=== PATIENT | male | born 1950 | race Caucasian/White ===

== ENCOUNTER 2022-04-21 22:41 | Emergency (ER) | payer MEDICARE, BC, SELFPAY ==
[2022-04-21 23:24] VITALS: BP 150/96; PULSE 99; RESP 16; TEMP 36.9; O2SAT 99; BMI 22.3
--- NOTE | 2022-04-22 00:12 | ED_ITS ---
HPI - Anxiety General Date Seen: 04/22/22 Chief Complaint: Anxiety Stated Complaint: Anxiety Time Seen by Provider: 04/22/22 00:12 Source: patient Mode of arrival: ambulatory History of Present Illness HPI narrative: Patient is a 72-year-old gentleman who presents here with self diagnosed anxiety, he is taking his blood pressures tonight, is getting readings in the 135 systolic and a 150 range. This very caused him a lot of anxiety, he did not have any chest pain any shortness of breath associated with this. He is not having any other symptoms. He has had anxiety in the past and was given 3 tablets of medication here, and says he wonders if he may get those again. He was given Ativan for this. He is not drinking any alcohol, he has no past history of any heart related issues but he is on a statin along with the Protonix. complaint: anxiety Onset (ago): hour(s) Severity: mild Quality: constant Place: home History of similar episodes: Yes Provoking factors: none known Relieving factors: nothing Exacerbating factors: nothing Associated symptoms: denies other symptoms Related Data Home Medications Medication Instructions Recorded Confirmed pantoprazole 40 mg tablet,delayed 40 mg PO DAILY 04/21/22 04/21/22 release simvastatin 40 mg tablet 40 mg PO DAILY 04/21/22 04/21/22 Previous Rx's Medication Instructions Recorded hydroxyzine pamoate 25 mg capsule 25 mg PO TID PRN #20 caps 04/22/22 Allergies Allergy/AdvReac Type Severity Reaction Status Date / Time No Known Drug Allergies Allergy Verified 04/21/22 23:31 Review of Systems Status of ROS: Reports: 10 or more systems reviewed and unremarkable except as noted in History and below PFSH PFS Social History Smoking Status: Never smoker How often do you have a drink containing alcohol: never AUDIT-C Alcohol total score: 0 Non-prescribed substance use: denies use Exam Narrative: Exam Narrative: Patient is very nice gentleman seen in room 5, he tells me right off that he is not suicidal or homicidal. His pupils are equal round react to light there is no scleral icterus redness TMs are normal oropharynx normal there is no adenopathy anterior posterior chains his neck is supple full range of motion, chest is clear heart sounds are normal, abdomen is soft there is no guarding no past splenomegaly, he does appear anxious, with the speech, but it is not pressured. Skin reveals no petechiae or rashes and he is neurologically intact in his upper lower extremities. Const: Vital Signs, click to edit/add: Vital Signs - 24 hr 04/21/22 23:24 Temperature 98.4 F Pulse Rate [Left P ulse Oximeter] 99 Respiratory Rate 16 Blood Pressure [Ri ght Upper Arm] 150/96 H Pulse Oximetry 99 Oxygen Delivery Me thod Room Air Course Vital Signs Vital signs: Initial Vital Signs Temperature 98.4 F 04/21/22 23:24 Temperature Source Temporal Artery Scan 04/21/22 23:24 Pulse Rate 99 04/21/22 23:24 Respiratory Rate 16 04/21/22 23:24 Blood Pressure 150/96 H 04/21/22 23:24 Blood Pressure Mean 114 04/21/22 23:24 Blood Pressure Position Sitting 04/21/22 23:24 Pulse Oximetry 99 04/21/22 23:24 Oxygen Delivery Method 04/21/22 23:24 Vital Signs Temperature 98.4 F 04/21/22 23:24 Pulse Rate 99 04/21/22 23:24 Respiratory Rate 16 04/21/22 23:24 Blood Pressure 150/96 H 04/21/22 23:24 Pulse Oximetry 99 04/21/22 23:24 Oxygen Delivery Method 04/21/22 23:24 Temperature 98.4 F 04/21/22 23:24 Pulse Rate 99 04/21/22 23:24 Respiratory Rate 16 04/21/22 23:24 Blood Pressure 150/96 H 04/21/22 23:24 Pulse Oximetry 99 04/21/22 23:24 Oxygen Delivery Method 04/21/22 23:24 MDM - Anxiety MDM Narrative Medical decision making narrative: Patient is seen and assessed, differential diagnosis is anxiety, no history of substance abuse, no history of cardiac issues. I discussed with him that I think if we use a little bit hydroxyzine, and then along to go home, with a small prescription that would be appropriate. He will follow up with his regular physician for a better treatment of the anxiety. Medical Records Attestation: I reviewed the patient's medical records. Discharge Plan Discharge Clinical Impression: Acute anxiety Patient Disposition: Home, Self-Care Condition: Stable Instructions: Anxiety (ED) Additional Instructions: Home, rest, use of medications as directed, follow-up with primary care. Prescriptions: New hydroxyzine pamoate 25 mg capsule 25 mg PO TID PRNQty: 20 0RF No Action simvastatin 40 mg tablet 40 mg PO DAILY pantoprazole 40 mg tablet,delayed release (DR/EC) 40 mg PO DAILY Follow Up/Referrals: Dimitri Zimmer MD [Primary Care Provider] - Stand Alone Forms: [employer] Info Instructions
[2022-04-22] MEDS: hydrOXYzine pamoate 25 MG CAPSULE PO (00:13)
== END 2022-04-22 00:35 | disposition home or self-care (01) ==
PROVIDERS: Emergency Provider Family Medicine; PCP Orthopaedic Surgery
DX: F41.9 Anxiety disorder, unspecified (principal)
CPT/HCPCS: 99283; A9270

== ENCOUNTER 2023-05-23 22:02 | Emergency (ER) | payer MEDICARE, BC, SELFPAY ==
[2023-05-23 22:14] VITALS: BP 146/86; PULSE 81; RESP 18; TEMP 36.6; O2SAT 98; BMI 23.0
--- NOTE | 2023-05-23 23:24 | ED_ITS ---
HPI - Extremity Injury (Upper) General Time Seen by Provider: 23:24 Date Seen: 05/23/23 Chief Complaint: Extremity Pain/Injury, Upper Stated Complaint: smashed finger on door Time Seen by Provider: 05/23/23 23:24 Source: patient and RN notes reviewed Mode of arrival: ambulatory Limitations: no limitations History of Present Illness HPI narrative: This andie 73-year-old gentleman is coming in with a right 5th finger injury. 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 Sustained a laceration, could not get it to stop bleeding. He is not on any blood thinners. 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 States he wasn't having issues bending it, could feel the end of the finger, did not note any numbness or tingling. Tetanus is up to date on 12/17/2022. Nothing else was injured. He soaked his finger in Epson salt water at home to clean it. MD complaint: injury to: right and finger Related Data Home Medications Medication Instructions Recorded Confirmed pantoprazole 40 mg tablet,delayed 40 mg PO DAILY 04/21/22 04/21/22 release simvastatin 40 mg tablet 40 mg PO DAILY 04/21/22 04/21/22 Previous Rx's Medication Instructions Recorded hydroxyzine pamoate 25 mg capsule 25 mg PO TID PRN #20 caps 04/22/22 Allergies Allergy/AdvReac Type Severity Reaction Status Date / Time No Known Drug Allergies Allergy Verified 04/21/22 23:31 Review of Systems Narrative: As per HPI. PFSH PFS Social History Smoking Status: Never smoker How often do you have a drink containing alcohol: never AUDIT-C Alcohol total score: 0 Non-prescribed substance use: denies use Exam Const: Vital Signs, click to edit/add: Vital Signs - 24 hr 05/23/23 22:14 Temperature 97.9 F Pulse Rate [Pulse Oximeter] 81 Respiratory Rate 18 Blood Pressure [Ri ght Upper Arm] 146/86 H Pulse Oximetry 98 Oxygen Delivery Me thod Room Air Very pleasant 73yo male seen in exam room 6. He has his hand in a glove and when this is removed, can see that he has bandages over the end of his right 5th finger, has bled through the bandages. These were removed and reveals a stellate center portion of the laceration that extends linearly both medially and laterally along the distal DIP grove of the palmar surface of the finger. Seems to have intact distal sensation of the pad of this finger. Mild oozing of blood. Documenting provider has reviewed patient's vital signs: yes Course Course ED Course: Finger anesthetized with 0.25% bupivacaine. This was done locally. Patient tolerated the procedure well. Standard sterile technique was observed, laceration was closed with simple interrupted sutures, a total of 8. There was a portion in the center of the stellate area where there was actually a little loss of the superficial skin. There is no active bleeding and thus this was just left. The rest of the skin had good closure and hemostasis was observed. Patient tolerated the procedure well. Patient will be getting an x-ray of this finger to rule out underlying fracture. Vital Signs Vital signs: Initial Vital Signs Temperature 97.9 F 05/23/23 22:14 Temperature Source Temporal Artery Scan 05/23/23 22:14 Pulse Rate 81 05/23/23 22:14 Respiratory Rate 18 05/23/23 22:14 Blood Pressure 146/86 H 05/23/23 22:14 Blood Pressure Mean 106 H 05/23/23 22:14 Pulse Oximetry 98 05/23/23 22:14 Oxygen Delivery Method Room Air 05/23/23 22:14 Vital Signs Temperature 97.9 F 05/23/23 22:14 Pulse Rate 81 05/23/23 22:14 Respiratory Rate 18 05/23/23 22:14 Blood Pressure 146/86 H 05/23/23 22:14 Pulse Oximetry 98 05/23/23 22:14 Oxygen Delivery Method Room Air 05/23/23 22:14 Temperature 97.9 F 05/23/23 22:14 Pulse Rate 81 05/23/23 22:14 Respiratory Rate 18 05/23/23 22:14 Blood Pressure 146/86 H 05/23/23 22:14 Pulse Oximetry 98 05/23/23 22:14 Oxygen Delivery Method Room Air 05/23/23 22:14 MDM - Extremity Injury (Upper) Imaging Data XR finger: Attestation: I have reviewed the pertinent imaging results. Radiologist's impression: Patient: KEERTHI HANSON Facility:?[facility] Patient ID:?[id number] Site Patient ID:?[id number]. Site :?[id number] Study:?XRay Extremity Right 5th Finger 3 views-05/24/2023 12:08:06 AM Ordering Physician:Ashley Montez Final Report: INDICATION: Right 5th finger trauma. TECHNIQUE: Right hand, 5th digit radiographs, 3 views. COMPARISON: None. FINDINGS: No acute fractures or dislocation. The joint spaces are preserved. Mild diffuse soft tissue edema involving the right 5th digit. No radiopaque foreign bodies. IMPRESSION: No acute fractures or dislocation. Mild soft tissue edema of the right 5th finger diffusely. Dictated by Adis Jones MD @ 05/24/2023 12:23:54 AM (Electronic Signature) Critical Care Time Critical Care Time Critical Care Time: No Discharge Plan Discharge Clinical Impression: Finger laceration Patient Disposition: Home, Self-Care Condition: Stable Instructions: Finger Laceration (ED) Additional Instructions: Need to keep this finger clean and dry until it is healed. Need to schedule a clinic appointment in about 10 days to assess the wound for suture removal. Apply bacitracin 3 to 4 times a day to wound, keep covered to keep it clean, especially if working. Do recommend using the splint to try to keep it straight if working as this will help diminish stress on the healing laceration. If there is any concern for infection, please seek re-evaluation. Prescriptions: No Action simvastatin 40 mg tablet 40 mg PO DAILY pantoprazole 40 mg tablet,delayed release (DR/EC) 40 mg PO DAILY hydroxyzine pamoate 25 mg capsule 25 mg PO TID PRNQty: 20 0RF Follow Up/Referrals: Dimitri Zimmer MD [Primary Care Provider] - Stand Alone Forms: [employer] Info Instructions
--- NOTE | 2023-05-23 23:47 | CRLHL7_ITS ---
For Patients: As a result of the Cures Act, medical imaging exams and procedure reports are released immediately into your electronic medical record. You may view this report before your referring provider. If you have questions, please contact your health care provider. INDICATION: Right 5th finger trauma. TECHNIQUE: Right hand, 5th digit radiographs, 3 views. COMPARISON: None. FINDINGS: No acute fractures or dislocation. The joint spaces are preserved. Mild diffuse soft tissue edema involving the right 5th digit. No radiopaque foreign bodies. IMPRESSION: No acute fractures or dislocation. Mild soft tissue edema of the right 5th finger diffusely. Dictated by Adis Jones MD @ 05/24/2023 12:23:54 AM (Electronically Signed)
== END 2023-05-24 00:45 | disposition home or self-care (01) ==
PROVIDERS: Emergency Provider Family Medicine; PCP Orthopaedic Surgery
DX: S61.216A Laceration without foreign body of right little finger without damage to nail, initial encounter (principal); W23.0XXA Caught, crushed, jammed, or pinched between moving objects, initial encounter; Y92.79 Other farm location as the place of occurrence of the external cause
CPT/HCPCS: 12001; 73140; 99283

== ENCOUNTER 2024-07-01 23:14 | Emergency (ER) | payer MEDICARE, BC, SELFPAY ==
[2024-07-01 23:23] VITALS: BP 188/108; PULSE 89; RESP 16; TEMP 36.5; O2SAT 100; BMI 23.7
--- NOTE | 2024-07-01 23:25 | ED.GENADULT ---
HPI - General Adult General Time Seen by Provider: 23:25 <Melida Warren MD - Last Filed: 07/05/24 19:50> Date Seen: 07/01/24 <Melida Warren MD - Last Filed: 07/05/24 19:50> Chief complaint: Lower Extremity Swelling <Melida Warren MD - Last Filed: 07/05/24 19:50> Stated complaint: R leg swelling and pain <Melida Warren MD - Last Filed: 07/05/24 19:50> Time Seen by Provider: 07/01/24 23:25 <Melida Warren MD - Last Filed: 07/05/24 19:50> Source: patient and RN notes reviewed <Melida Warren MD - Last Filed: 07/05/24 19:50> Mode of arrival: ambulatory <Melida Warren MD - Last Filed: 07/05/24 19:50> Limitations: no limitations <Melida Warren MD - Last Filed: 07/05/24 19:50> History of Present Illness HPI narrative: Ronan is a 74-year-old male coming in with right lower extremity swelling that is worsening. He notes there is discomfort along the mid anterior arnold of this right leg, symptoms have been worse over the last few days. For about 5-6 years he would note that if he was sitting in his tractor too long in a certain position that the dorsum of his right foot would be swollen. This would go down with movement. He has seen his primary care provider about it. His enologist Dr. Childs did shave the callus between his 4th and 5th toes on the right foot recently, he wondered if there could be an infection. He has had no fevers or chills. There is a little pain anteriorly along this mid tibial area that does hurt with walking. He has no pain in the calf. He states his ankle and his leg is typically not swollen. He denies any shortness of breath, no chest pain, no abdominal pain or bloating. He does not drink alcohol, no illicit drug use. He has had no travel or prolonged immobilization. 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 Medications are reviewed, history of anxiety and hyperlipidemia. He notes his left knee is bad with arthritis. He has never had any surgery on his right lower extremity. <Melida Warren MD - Last Filed: 07/05/24 19:50> Related Data Home medications: Home Medications ?Medication ?Instructions ?Recorded ?Confirmed pantoprazole 40 mg tablet,delayed 40 mg PO DAILY 04/21/22 04/21/22 release simvastatin 40 mg tablet 40 mg PO DAILY 04/21/22 07/01/24 Previous Rx's ?Medication ?Instructions ?Recorded hydroxyzine pamoate 25 mg capsule 25 mg PO TID PRN #20 caps 04/22/22 <Melida Warren MD - Last Filed: 07/05/24 19:50> Allergies/adverse reactions: Allergies Allergy/AdvReac Type Severity Reaction Status Date / Time No Known Drug Allergies Allergy Verified 07/01/24 23:26 <Melida Warren MD - Last Filed: 07/05/24 19:50> Review of Systems Status of ROS: Reports: 6 or more systems reviewed and unremarkable except as noted in History and below <Melida Warren MD - Last Filed: 07/05/24 19:50> [facility] Social History: Social History Smoking Status: Never smoker Do you use any of these nicotine containing products: None Second hand tobacco smoke exposure: No How often do you have a drink containing alcohol: never How often do you have six or more drinks on one occasion: Never AUDIT-C Alcohol total score: 0 Non-prescribed substance use: denies use service: No <Melida Warren MD - Last Filed: 07/05/24 19:50> Exam Const: Vital Signs, click to edit/add: Vital Signs - 24 hr 07/01/24 23:23 07/02/24 00:23 Temperature 97.7 F Pulse Rate [Pulse Oximeter] 89 81 Respiratory Rate 16 16 Blood Pressure [Ri ght Upper Arm] 188/108 H 164/91 H Pulse Oximetry 100 99 Oxygen Delivery Me thod Room Air Room Air Ronan is alert, interactive, no apparent distress very verbose and conversational, very pleasant. Sclera clear, face atraumatic. No tachypnea. CV regular with ectopy at times no murmur noted, normal S1-S2. Lungs are clear, good air entry, no wheezing or crackles. Abdomen is soft, nontender, nondistended, no organomegaly. His right lower extremity certainly appears larger than the left. His ankle is larger on the right than the left. Do not note significant swelling with in the right foot verses the left foot. Dorsalis pedis and posterior tibialis pulses are faint but symmetric. His feet feel warm, no erythema or ecchymosis noted. Toenails are long on both feet. Does seem to have slight swelling on the dorsum of the right foot compared to the left. Measuring 10 cm down from his tibial tuberosity on both legs, right leg measures 39 cm and left 37 cm. He has about 1 to 2+ pretibial edema on the right, negligible on the left. Edema does not seem to extend above the knee. I note no varicose veins, do not appreciate any superficial veins. The area between his 4th and 5th toes where he had debridement of the callus is completely benign, looks to be normal skin, no evidence of prior debridement or residual callus at this time. <Melida Warren MD - Last Filed: 07/05/24 19:50> Vital Signs, click to edit/add: Vital Signs - 24 hr 07/01/24 23:23 07/02/24 00:23 Temperature 97.7 F Pulse Rate [Pulse Oximeter] 89 81 Respiratory Rate 16 16 Blood Pressure [Ri ght Upper Arm] 188/108 H 164/91 H Pulse Oximetry 100 99 Oxygen Delivery Me thod Room Air Room Air <William Steward MD - Last Filed: 07/06/24 11:03> Documenting provider has reviewed patient's vital signs: yes <Melida Warren MD - Last Filed: 07/05/24 19:50> Course Course ED Course: This 74-year-old male is presenting with some discomfort but it is along his anterior lower extremity but has isolated right lower extremity swelling. Will check portable chest x-ray, obtain EKG is he does have some ectopy or irregularity at times listening to his heart, insure no arrhythmia. Will check D-dimer, CBC and comprehensive metabolic panel. He is providing some history that would suggest edema in this leg even if it was only affecting the dorsum of his right foot with dependent positional nature over the last 5-6 years. We did discuss that patient's edema can progress and it can be unilateral. I am doubtful that he has congestive heart failure based on presentation but will double-check with a chest x-ray, will look at a proBNP. He has no respiratory or cardiac symptoms that would suggest this. I think likely diagnosis of venous insufficiency could be probable, have reviewed with him that venous ultrasound could be done outpatient if negative workup here, this is not something that is an emergent test. This type of swelling can be chronic and recurrent but can be managed through his primary provider. Consideration for DVT, will look at wells criteria as well as D-dimer. This does not appear to be infectious in nature at all. Have reviewed well's criteria and he definitely has unilateral pitting edema, giving him a score of 1, he may be a score of 2 with full leg edema but certainly is a 1. R D-dimer here is not highly sensitive, is a regular D-dimer. Thus, he will need to proceed to ultrasound of this lower extremity to definitively rule out DVT. <Melida Warren MD - Last Filed: 07/05/24 19:50> Reevaluation(s) Time of Reevaluation #1: 00:16 <Melida Warren MD - Last Filed: 07/05/24 19:50> Reevaluation #1: Reviewed with patient that his chest x-ray and EKG are reassuring, no concerning findings. His CBC is normal. Did review with him that he will be getting a venous ultrasound of his right lower extremity to rule out DVT. If this is negative, will discharge to home to follow up with his primary care provider to pursue further evaluation of right lower extremity edema, consider venous insufficiency. <Melida Warren MD - Last Filed: 07/05/24 19:50> Vital Signs Vital signs: Initial Vital Signs Temperature 97.7 F 07/01/24 23:23 Temperature Source Temporal Artery Scan 07/01/24 23:23 Pulse Rate 89 07/01/24 23:23 Respiratory Rate 16 07/01/24 23:23 Blood Pressure 188/108 H 07/01/24 23:23 Blood Pressure Mean 134 H 07/01/24 23:23 Blood Pressure Position Sitting 07/01/24 23:23 Pulse Oximetry 100 07/01/24 23:23 Oxygen Delivery Method Room Air 07/01/24 23:23 Vital Signs Temperature 97.7 F 07/01/24 23:23 Pulse Rate 89 07/01/24 23:23 Respiratory Rate 16 07/01/24 23:23 Blood Pressure 188/108 H 07/01/24 23:23 Pulse Oximetry 100 07/01/24 23:23 Oxygen Delivery Method Room Air 07/01/24 23:23 Temperature 97.7 F 07/01/24 23:23 Pulse Rate 81 07/02/24 00:23 Respiratory Rate 16 07/02/24 00:23 Blood Pressure 164/91 H 07/02/24 00:23 Pulse Oximetry 99 07/02/24 00:23 Oxygen Delivery Method Room Air 07/02/24 00:23 <Melida Warren MD - Last Filed: 07/05/24 19:50> Initial Vital Signs Temperature 97.7 F 07/01/24 23:23 Temperature Source Temporal Artery Scan 07/01/24 23:23 Pulse Rate 89 07/01/24 23:23 Respiratory Rate 16 07/01/24 23:23 Blood Pressure 188/108 H 07/01/24 23:23 Blood Pressure Mean 134 H 07/01/24 23:23 Blood Pressure Position Sitting 07/01/24 23:23 Pulse Oximetry 100 07/01/24 23:23 Oxygen Delivery Method Room Air 07/01/24 23:23 Vital Signs Temperature 97.7 F 07/01/24 23:23 Pulse Rate 89 07/01/24 23:23 Respiratory Rate 16 07/01/24 23:23 Blood Pressure 188/108 H 07/01/24 23:23 Pulse Oximetry 100 07/01/24 23:23 Oxygen Delivery Method Room Air 07/01/24 23:23 Temperature 97.7 F 07/01/24 23:23 Pulse Rate 81 07/02/24 00:23 Respiratory Rate 16 07/02/24 00:23 Blood Pressure 164/91 H 07/02/24 00:23 Pulse Oximetry 99 07/02/24 00:23 Oxygen Delivery Method Room Air 07/02/24 00:23 <William Steward MD - Last Filed: 07/06/24 11:03> Medical Decision Making MDM Narrative Medical decision making narrative: Bin -- Inherited this patient at change of shift pending right lower extremity venous Doppler ultrasound. 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 Reviewed with Mr. Milton. Would probably benefit from some compression. Admits that his swelling has improved a little bit over time in the emergency department with his leg elevated for the most part. Discussed also the anterior lower arnold area pain he has been experiencing. This seems to have been more present over this last week and might be associated with increased activity and worn out footwear. Wearing new tennis shoes here today now. Appears that might have some degree of arnold pain/arnold splints. Anticipating giving him handout for this. Have also dispensed Carlo wraps and Coban Pending formal radiology over-read. <William Steward MD - Last Filed: 07/06/24 11:03> Lab Data Lab results reviewed: Yes I reviewed the patient's lab results <Melida Warren MD - Last Filed: 07/05/24 19:50> Lab results narrative: D-dimer is mildly elevated but within normal for age limits. <Melida Warren MD - Last Filed: 07/05/24 19:50> Labs: Lab Results 07/01/24 Range/Units 23:45 WBC 5.73 (4.50-11.00) K/uL RBC 4.31 (4.30-5.90) m/uL Hgb 13.8 (13.5-17.5) gm/dL Hct 42.8 (37.0-53.0) % MCV 99 (80-100) fL MCH 32 (26-34) pg MCHC 32 (32-36) gm/dL RDW Coeff of Marilia 12.5 (11.5-15.5) % Plt Count 156 (140-440) K/uL Neut % (Auto) 69.5 (42.0-72.0) % Lymph % (Auto) 18.7 L (20-44) % Ashley % (Auto) 9.9 (0.0-11.0) % Eos % (Auto) 1.6 (0.0-7.0) % Baso % (Auto) 0.3 (0.0-3.0) % Neut # (Auto) 3.98 (1.7-7.0) K/uL Lymph # (Auto) 1.10 (0.90-2.90) K/uL Ashley # (Auto) 0.60 (0.00-0.90) K/UL Eos # (Auto) 0.09 (0.00-0.50) K/uL Baso # (Auto) 0.02 (0.00-0.30) K/uL Abs Immat Gran (auto) 0.00 (0.00-0.30) K/uL Imm/Tot Granulo (auto) 0.0 % D-Dimer Quant (PE/DVT) 0.55 H (0.00-0.50) ug/ml Sodium 138 (135-149) mmol/L Potassium 4.2 (3.6-5.1) mmol/L Chloride 105 (96-114) mmol/L Carbon Dioxide 27 (20-32) mmol/L Anion Gap 6 L (7-15) mEq/L BUN 18 (7-30) mg/dL Creatinine 0.6 (0.5-1.5) mg/dL Estimated Creat Clear 66.92 Estimated GFR 101 ml/min Glucose 108 (60-115) mg/dL Calcium 9.4 (8.4-10.6) mg/dL Total Bilirubin 0.3 (0.1-1.5) mg/dL AST 35 (12-35) U/L ALT 32 (4-50) U/L Alkaline Phosphatase 56 (40-150) U/L NT-Pro-B Natriuret Pep 86 pg/mL Total Protein 6.9 (6.0-8.3) g/dL Albumin 4.3 (3.3-5.0) g/dL <Melida Warren MD - Last Filed: 07/05/24 19:50> Lab Results 07/01/24 Range/Units 23:45 WBC 5.73 (4.50-11.00) K/uL RBC 4.31 (4.30-5.90) m/uL Hgb 13.8 (13.5-17.5) gm/dL Hct 42.8 (37.0-53.0) % MCV 99 (80-100) fL MCH 32 (26-34) pg MCHC 32 (32-36) gm/dL RDW Coeff of Marilia 12.5 (11.5-15.5) % Plt Count 156 (140-440) K/uL Neut % (Auto) 69.5 (42.0-72.0) % Lymph % (Auto) 18.7 L (20-44) % Ashley % (Auto) 9.9 (0.0-11.0) % Eos % (Auto) 1.6 (0.0-7.0) % Baso % (Auto) 0.3 (0.0-3.0) % Neut # (Auto) 3.98 (1.7-7.0) K/uL Lymph # (Auto) 1.10 (0.90-2.90) K/uL Ashley # (Auto) 0.60 (0.00-0.90) K/UL Eos # (Auto) 0.09 (0.00-0.50) K/uL Baso # (Auto) 0.02 (0.00-0.30) K/uL Abs Immat Gran (auto) 0.00 (0.00-0.30) K/uL Imm/Tot Granulo (auto) 0.0 % D-Dimer Quant (PE/DVT) 0.55 H (0.00-0.50) ug/ml Sodium 138 (135-149) mmol/L Potassium 4.2 (3.6-5.1) mmol/L Chloride 105 (96-114) mmol/L Carbon Dioxide 27 (20-32) mmol/L Anion Gap 6 L (7-15) mEq/L BUN 18 (7-30) mg/dL Creatinine 0.6 (0.5-1.5) mg/dL Estimated Creat Clear 66.92 Estimated GFR 101 ml/min Glucose 108 (60-115) mg/dL Calcium 9.4 (8.4-10.6) mg/dL Total Bilirubin 0.3 (0.1-1.5) mg/dL AST 35 (12-35) U/L ALT 32 (4-50) U/L Alkaline Phosphatase 56 (40-150) U/L NT-Pro-B Natriuret Pep 86 pg/mL Total Protein 6.9 (6.0-8.3) g/dL Albumin 4.3 (3.3-5.0) g/dL <William Steward MD - Last Filed: 07/06/24 11:03> Imaging Data Chest x-ray: Attestation: I have reviewed the pertinent imaging results. <Melida Warren MD - Last Filed: 07/05/24 19:50> My impression: I do not appreciate any congestive changes. <Melida Warren MD - Last Filed: 07/05/24 19:50> Radiologist's impression: Patient: RONAN MILTON Facility:?[facility] Patient ID:?[id number] Site Patient ID:?[id number]. Site :?[id number] Study:?XRay-Chest 1V PORTABLE-07/01/2024 11:48:31 PM Ordering Physician:Ashley Montez Final Report: INDICATION: Lower extremity chest swelling TECHNIQUE: Chest radiograph 1 view COMPARISON: None FINDINGS: Mediastinum: The mediastinum is normal in appearance. The heart silhouette is normal in size and morphology. Lung: Both lungs are unremarkable in appearance. No sign of pleural effusion seen. No pneumothorax is identified. Bone and Soft tissue: Unremarkable for age. IMPRESSION: 1. No acute cardiopulmonary disease is seen. Dictated by: Quinton Acuna MD @ 07/01/2024 23:49:16 (Electronic Signature) <Melida Warren MD - Last Filed: 07/05/24 19:50> Venous US: Attestation: I have reviewed the pertinent imaging results. <Melida Warren MD - Last Filed: 07/05/24 19:50> Radiologist's impression: Patient: RONAN MILTON Facility:?[facility] Patient ID:?[id number] Site Patient ID:?[id number]. Site :?[id number] Study:?US-Extremity Right LEV-07/02/2024 12:48:59 AM Ordering Physician:Ashley Montez Final Report: INDICATION: Unilateral right leg swelling and discomfort TECHNIQUE: Ultrasound venous duplex right lower extremity. Real-time malcolm-scale (B mode 2D), color Doppler, and spectral Doppler imaging were performed with compression and augmentation. COMPARISON: None FINDINGS: Deep vein: The right common femoral, femoral, popliteal, and visualized calf veins are fully compressible, demonstrate normal color flow, and normal response to mechanical augmentation. The Duplex Doppler waveforms are normal in appearance. Superficial vein: The visualized greater saphenous and superficial veins of the leg and calf are unremarkable. Soft tissue: No masses or cysts are identified. No adenopathy is seen. IMPRESSION: 1. No sonographic evidence of acute deep venous thrombosis seen. Dictated by: Quinton Acuna MD @ 07/02/2024 00:54:06 Signed by:Leora Acuna MD @07/02/2024 12:54:06 AM (Electronic Signature) <Melida Warren MD - Last Filed: 07/05/24 19:50> ECG Data Attestation: I personally reviewed and interpreted this ECG as follows: (Sinus rhythm with premature supraventricular complexes, 79 beats per minute. No ischemia, no infarct.) <Melida Warren MD - Last Filed: 07/05/24 19:50> Prior ECG tracings: not available for review <Melida Warren MD - Last Filed: 07/05/24 19:50> Discharge Plan Discharge Clinical Impression: Swelling of right lower extremity <Melida Warren MD - Last Filed: 07/05/24 19:50> Patient Disposition: Home, Self-Care <Melida Warren MD - Last Filed: 07/05/24 19:50> Condition: Stable <Melida Warren MD - Last Filed: 07/05/24 19:50> Instructions: Leg Edema (ED) <Melida Warren MD - Last Filed: 07/05/24 19:50> Additional Instructions: Your ultrasound does not show any evidence of blood clot or DVT. You need to schedule a follow-up in clinic with your primary care provider, consider further workup for venous insufficiency. You can talk to your doctor about compression stockings, diuretics to help control edema. In the meantime, try to elevate this leg as much as possible when you are resting. The more you have this lower extremity dependent, the more chance there is for development of edema. If you have further concerns in the interim, please seek re-evaluation. <Melida Warren MD - Last Filed: 07/05/24 19:50> Activity Level: Activity as Tolerated <Melida Warren MD - Last Filed: 07/05/24 19:50> Activity as Tolerated <William Steward MD - Last Filed: 07/06/24 11:03> Prescriptions: No Action simvastatin 40 mg tablet 40 mg PO DAILY pantoprazole 40 mg tablet,delayed release (DR/EC) 40 mg PO DAILY hydroxyzine pamoate 25 mg capsule 25 mg PO TID PRNQty: 20 0RF <Melida Warren MD - Last Filed: 07/05/24 19:50> Follow Up/Referrals: Dimitri Zimmer MD [Primary Care Provider] - <Melida Warren MD - Last Filed: 07/05/24 19:50> Stand Alone Forms: [employer] Info Instructions <Melida Warren MD - Last Filed: 07/05/24 19:50>
--- NOTE | 2024-07-01 23:34 | CRLHL7_ITS ---
For Patients: As a result of the Cures Act, medical imaging exams and procedure reports are released immediately into your electronic medical record. You may view this report before your referring provider. If you have questions, please contact your health care provider. INDICATION: Lower extremity chest swelling TECHNIQUE: Chest radiograph 1 view COMPARISON: None FINDINGS: Mediastinum: The mediastinum is normal in appearance. The heart silhouette is normal in size and morphology. Lung: Both lungs are unremarkable in appearance. No sign of pleural effusion seen. No pneumothorax is identified. Bone and Soft tissue: Unremarkable for age. IMPRESSION: 1. No acute cardiopulmonary disease is seen. Dictated by: Qiunton Acuna MD @ 07/01/2024 23:49:16 (Electronically Signed)
[2024-07-01 23:53] LABS: Basophils Absolute Auto 0.02 K/uL (0.00-0.30); Basophils Percent Auto 0.3 % (0.0-3.0); Eosinophils Absolute Auto 0.09 K/uL (0.00-0.50); Eosinophils Percent Auto 1.6 % (0.0-7.0); Hematocrit 42.8 % (37.0-53.0); Hemoglobin* 13.8 gm/dL (13.5-17.5); Lymphocytes Percent Auto 18.7 % (20-44); Mean Corpuscular HGB Conc 32 gm/dL (32-36); Mean Corpuscular Hemoglobin 32 pg (26-34); Mean Corpuscular Volume 99 fL (80-100); Monocytes Percent Auto 9.9 % (0.0-11.0); Neutrophils Absolute Auto 3.98 K/uL (1.7-7.0); Neutrophils Percent Auto 69.5 % (42.0-72.0); Platelet Count* 156 K/uL (140-440); RDW Coefficient of Variation % 12.5 % (11.5-15.5); Red Blood Count 4.31 m/uL (4.30-5.90); White Blood Count* 5.73 K/uL (4.50-11.00)
[2024-07-01 23:55] LABS: Slide Review Reflex No
--- NOTE | 2024-07-02 00:01 | CRLHL7_ITS ---
For Patients: As a result of the Century Cures Act, medical imaging exams and procedure reports are released immediately into your electronic medical record. You may view this report before your referring provider. If you have questions, please contact your health care provider. INDICATION: Unilateral right leg swelling and discomfort TECHNIQUE: Ultrasound venous duplex right lower extremity. Real-time malcolm-scale (B mode 2D), color Doppler, and spectral Doppler imaging were performed with compression and augmentation. COMPARISON: None FINDINGS: Deep vein: The right common femoral, femoral, popliteal, and visualized calf veins are fully compressible, demonstrate normal color flow, and normal response to mechanical augmentation. The Duplex Doppler waveforms are normal in appearance. Superficial vein: The visualized greater saphenous and superficial veins of the leg and calf are unremarkable. Soft tissue: No masses or cysts are identified. No adenopathy is seen. IMPRESSION: 1. No sonographic evidence of acute deep venous thrombosis seen. Dictated by: Quinton Acuna MD @ 07/02/2024 00:54:06 (Electronically Signed)
[2024-07-02 00:07] LABS: Albumin* 4.3 g/dL (3.3-5.0); Chloride* 105 mmol/L (96-114); Sodium* 138 mmol/L (135-149)
[2024-07-02 00:08] LABS: Potassium* 4.2 mmol/L (3.6-5.1)
[2024-07-02 00:10] LABS: Alanine Aminotransferase* 32 U/L (4-50); Alkaline Phosphatase* 56 U/L (40-150); Anion Gap 6 mEq/L (7-15); Aspartate Amino Transferase* 35 U/L (12-35); Bilirubin Total* 0.3 mg/dL (0.1-1.5); Blood Urea Nitrogen* 18 mg/dL (7-30); Carbon Dioxide* 27 mmol/L (20-32); Creatinine* 0.6 mg/dL (0.5-1.5); Est. Creatinine Clearance* 66.92; Estimated Glomerular Filt Rate 101 ml/min; Glucose* 108 mg/dL (60-115); Total Protein* 6.9 g/dL (6.0-8.3)
[2024-07-02 00:11] LABS: Calcium* 9.4 mg/dL (8.4-10.6)
[2024-07-02 00:12] LABS: D Dimer Quantitative* 0.55 ug/ml (0.00-0.50)
[2024-07-02 00:21] LABS: NT Pro B Type NatriureticPept* 86 pg/mL
[2024-07-02 00:23] VITALS: BP 164/91; PULSE 81; RESP 16; O2SAT 99
== END 2024-07-02 01:02 | disposition home or self-care (01) ==
PROVIDERS: Emergency Provider Family Medicine; PCP Orthopaedic Surgery
DX: R60.9 Edema, unspecified (principal)
CPT/HCPCS: 36415; 71045; 80053; 83880; 85025; 85379; 93005; 93971; 99284; 99285

== ENCOUNTER 2025-03-12 23:32 | Emergency (ER) | payer MEDICARE, BC, SELFPAY ==
--- OUTSIDE RECORDS SUMMARY | 2025-03-12 23:35 | XMS_ITS | Clinical Summary ---
Author Organization [facility] Address [address] [place] [address] Care Team Providers Care Cloth Bale Header Name Role Phone Dimitri Zimmer DO Primary Care Provider [phone] Allergies No known active allergies Medications simvastatin 20 mg tabletIndications:O ther hyperlipidemia Take 1 Tablet (20 mg) by mouth at bedtime. 90 Tablet 4 5 Active atenoloL (TENORMIN) 25 mg tabletIndications:A trial flutter with rapid ventricular response (HC) Take 1 Tablet (25 mg) by mouth once daily. 30 Tablet 5 Active Active Problems No known active problems Encounters Date Type Department Care Team Description 03/12/2025 Nurse Triage [facility] [id number] [place] [address] Dimitri Zimmer DO Fast Heartbeat; Chest Pain 03/12/2025 Orders Only [address] [address] Dimitri Zimmer DO 1 scan: (1-Ord) <No description> 03/08/[address] [address] Dimitri Zimmer DO Appointment 03/07/2025 1:45 PM CDT Office Visit [address] [address] Dimitri Zimmer, Pre-Op Exam (03/26/[address] [place] [address] Cole Huang for robotic assisted arthroplasty of left knee.) 03/07/2025 Telephone [facility] [address] [place] [address] Dimitri Zimmer, DO Results 03/07/2025 Travel 03/06/2025 Telephone [facility] [address] [facility] [address] [place] [address] Svetlana Ca, surveyor geodetic Nurse Navigator (ONN pre sx touch in) 03/06/2025 Patient Outreach [facility] [address] [facility] [address] [facility] [address] [place] [address] Svetlana Ca, surveyor geodetic Nurse Navigator (ONN assessment/education ) 02/13/2025 10:45 AM CDT Office Visit [facility] [address] [place] [address] Deyvi Godfrey, DPM Follow Up (Rt 5th toe/LV 10/18/24 ) 02/13/2025 Travel 2025 11:20 AM CDT Office Visit [facility] [address] [place] [address] Cole Huang MD Knee Pain/problem (Left knee pain ) 2025 Orders Only [facility] [address] [facility] [address] [place] [address] Cole Huang MD <No scans attached> 2025 Travel 12/20/2024 11:10 AM CDT Office Visit [facility] [address] [place] [address] Dimitri Zimmer, Medicare ANNUAL (subsequent) Visit (Fasting today.); Knee Pain/problem (Left knee pain, ongoing from last visit. Would like to discuss an injection for this.) 12/20/2024 Travel from Last 3 Months Immunizations Immunization Administration Dates Next Due COVID-19 VACCINE SPIKEVAX (M ODERNA 50MCG/0.5ML) 12YO+ PFS 05/05/2023 COVID-19 vaccine (NaikuBio NTech 30mcg/0.3mL) 12YO+ BIVALENT PF, MDV 05/05/2022 COVID-19 vaccine (NaikuBio NTech 30mcg/0.3mL) PF, MDV 07/30/2021,11/25/2020,11/04/2020 Pneumococcal Poly,23-Valent (Pneumovax) 10/16/19 Pneumococcal conj 13-Valent (Prevnar 13) 019 Tdap 12/17/2022,03/15/2012 Social History Tobacco Use Types Packs/Day Years Used Date Smoking Tobacco: Never Smokeless Tobacco: Never Tobacco Cessation:Counseling Given: Yes Alcohol Use Standard Drinks/Week Comments Not Currently 0 (1 standard drink = 0.6 oz pur e alcohol) PHQ-2 Answer Date Recorded PHQ-2 TOTAL SCORE 0 12/20/2024 Social Connections Answer Date Recorded Do you often feel lonely or isolated from those around you? 0 12/20/2024 Financial Resource Strain Answer Date R ecorded Difficulty of Paying Living Expenses 3 12/20/2024 Difficulty of Paying Living Expenses Not on file 12/20/2024 Food Insecurity Answer Date Recorded Do you worry your food will run out before you are able to buy more? 1 12/20/2024 Transportation Needs Answer Date Record ed Does lack of transportation keep you from medica l appointments? 1 12/20/2024 Does lack of transportation keep you from work, meetings or getting things that you need? 1 12/20/2024 Housing Stability Answer Date Recorded What is your housing situation today? 1 12/20/2024 Utilities Answer Date Recorded Do you have trouble paying f or utilities (for example, heat, electricity, water, phone)? 1 12/20/2024 Sex and Gender Information Value Date Recorded Sex Assigned at Male 03/08/2025 1:54 PM CDT Legal Sex Male 7:15 AM STRATEGIC PARTNERSHIP MANAGER Gender Identity Male 03/08/2025 1:54 PM CDT Sexual Orientation Straight 03/08/2025 1: 54 PM CDT Obstetrics History Last Filed Vital Signs Vital Sign Reading Time Taken Comments Blood Pressure 124/76 03/07/2025 1:58 PM CDT Pulse 104 03/07/2025 1:58 PM CDT Temperature 36.8 C (98.2 F) 03/07/2025 1:58 PM CDT Respiratory Rate - - Oxygen Saturation 98% 03/07/2025 1:58 PM CDT Inhaled Oxygen Concentration - - Weight 70.2 kg (154 lb 12.8 oz) 03/07/2025 1:58 PM CDT Height 171 cm (5' 7.32) 03/07/2025 1:58 PM CDT Body Mass Index 24.01 03/07/2025 1:58 PM CDT Plan of Treatment Upcoming Encounters Date Type Department Care Team (Latest Contact Info) Description 03/13/2025 11:00 AM CDT Office Visit [facility] [address] [place] [address] Cole Huang MD [address] [place] [address] 03/13/2025 3:00 PM CDT Office Visit [facility] [address] [facility] [address] [place] [address] Cole Mayen MD [address] [facility] [address] [place] [address] 03/26/2025 8:43 AM CDT Hospital Encounter [address] [address] Cole Huang MD [address] [place] [address] 03/26/2025 8:43 AM CDT - 03/26/2025 11:18 AM CDT Surgery [address] [address] Cole Huang MD [address] [place] [address] INPATIENT LEFT ROBOTIC ASSISTED ARTHROPLASTY KNEE CORI 04/10/2025 11:00 AM CDT Office Visit [facility] [address] [place] [phone] Cole Huang MD [address] [place], [place] [phone] 05/08/2025 11:00 AM CDT Office Visit [facility] [address] [place] [phone] Cole Huang MD [address] [place], [place] [phone] Scheduled Procedures Name Priority Associated Diagnoses Date/Ti me ROBOTIC ASSISTED ARTHROPLASTY KNEE CORI Elective Osteoarthritis of left knee 03/26/2025 8:43 AM CDT Health Maintenance Due Date Last Done Comments Zoster (shingles) series for age 50+ (1 of 2) 01/31/2000 COVID-19 vaccine series ( season) 2024 05/05/2023, 05/05/2022, 07/30/2021, Additional history exists RSV vaccine for adults or (1 - 1-dose 75+ series) 2025 Influenza Vaccine (#1) 2025 Colonoscopy through age 75 08/07/202508/07, 08/07/2015 (Completed outside of [facility]) Depression screening for age 12+ 12/20/2025 12/20/2024, 12/21/2023, 12/21/2023, Additional history exists Medicare Wellness for age 65+ 12/21/2025 12/20/2024, 12/20/2023, 12/17/2022, Additional history exists BMI (ht and wt on same day) for age 18+ 03/07/2026 03/07/2025, 12/20/2024, 12/20/2023, Additional history exists Lipids for age 45-75 12/20/2029 12/20/2024, 12/20/2023, 12/17/2022, Additional history exists Tetanus booster 12/17/2032 12/17/2022, 03/15/2012 Pneumococcal series for age 50+ Completed 10/15/2021, 10/31/2018 Hepatitis C screening for age 18-79 Completed 12/17/2022 Hepatitis B series for 19+ Aged Out N o longer eligible based on patient's age to complete this topic Goals Goal Patient Goal Type Associated Problems Recent Progress Patient-Stated? Author Autogenera tesfaye Goal Care Plan Autogenerated Problem No Jolie Younger HUC Procedures Procedure Name Priority Date/Time Associated Diagnosis Comments CBC WITH AUTO DIFFERENTIAL Routine 03/07/2025 3:25 PM CDT Preop general physical exam TSH WITH REFLEX Routine 03/07/2025 3:25 PM CDT Atrial flutter with rapid ventricular response (HC) Tachycardia COMP METABOLIC PANEL Routine 03/07/2025 3:25 PM CDT Atrial flutter with rapid ventricular response (HC) CBC WITH AUTO DIFFERENTIAL Routine 03/07/2025 3:25 PM CDT Preop general physical exam EKG 12 LEAD Routine 03/07/2025 Preop general physical exam MA ECG ROUTINE ECG W/LEAST 12 LDS W/I&R Routine 03/07/2025 Preop general physical exam HEMOGLOBIN Routine 12/20/2024 12:04 PM CDT Screening, iron deficiency anemia PSA TOTAL Routine 12/20/2024 12:03 PM CDT Screening for prostate cancer LIPID PANEL W REFLEX MEASURED LDL Routine 12/20/2024 12:03 PM CDT Other hyperlipidemia COMP METABOLIC PANEL Routine 12/20/2024 12:03 PM CDT Screening for diabetes mellitus (DM) LC HCV ANTIBODY RFX TO QUANT PCR Routine 12/17/2022 11:56 AM CDT Need for hepatitis C screening test SCAN-COLONOSCOPY 08/07/2015 12:0 0 AM STRATEGIC PARTNERSHIP MANAGER from Last 3 Months or Most Recently Relevant to Health Maintenance Results * CBC WITH AUTO DIFFERENTIAL (03/07/2025 3:25 PM CDT) WHITE BLOOD CELL COUNT 8.2 3.8 - 10.8 Thousand/u L 03/07/2025 4:08 PM CDT [facility] RED BLOOD CELL COUNT 4.94 4.20 - 5.80 Million/uL 03/07/2025 4:08 PM CDT [facility] HEMOGLOBIN 15.9 13.2 - 17.1 g/dL 03/07/2025 4:08 PM CDT [facility] HEMATOCRIT 48.6 38.5 - 50.0 % 03/07/2025 4:08 PM CDT [facility] MCV 98.4 80.0 - 100.0 fL 03/07/2025 4:08 PM CDT [facility] MCH 32.2 27.0 - 33.0 pg 03/07/2025 4:08 PM CDT [facility] MCHC 32.7 32.0 - 36.0 g/dL 03/07/2025 4:08 PM CDT [facility] Comment: For adults, a slight decrease in the calculated MCHC value (in the range of 30 to 32 g/dL) is most likely not clinically significant; however, it should be interpreted with caution in correlation with other red cell parameters and the patient's clinical condition. RDW 12.4 11.0 - 15.0 % 03/07/2025 4:08 PM CDT [facility] PLATELET COUNT 194 140 - 400 Thousand/u L 03/07/2025 4:08 PM CDT [facility] MPV 9.8 7.5 - 12.5 fL 03/07/2025 4:08 PM CDT [facility] NEUTROPHILS 74 % 03/07/2025 4:08 PM CDT [facility] LYMPHOCYTES 15.8 % 03/07/2025 4:08 PM CDT [facility] MONOCYTES 9.0 % 03/07/2025 4:08 PM CDT [facility] EOSINOPHILS 1.0 % 03/07/2025 4:08 PM CDT [facility] BASOPHILS 0.2 % 03/07/2025 4:08 PM CDT [facility] ABSOLUTE NEUTROPHILS 6068 1500 - 7800 cells/uL 03/07/2025 4:08 PM CDT [facility] ABSOLUTE LYMPHOCYTES 1296 850 - 3900 cells/uL 03/07/2025 4:08 PM CDT [facility] ABSOLUTE MONOCYTES 738 200 - 950 cells/uL 03/07/2025 4:08 PM CDT [facility] ABSOLUTE EOSINOPHILS 82 15 - 500 cells/uL 03/07/2025 4:08 PM CDT [facility] ABSOLUTE BASOPHILS 16 0 - 200 cells/uL 03/07/2025 4:08 PM CDT [facility] Blood BLOOD SPECIMEN / Unknown [facility] / Unknown 03/07/2025 3:25 PM CDT 03/07/2025 3:25 PM CDT us Dimitri Zimmer DO HEMATOLOGY Final Res ult [employer] [address] [address], [place] [phone] [facility] [address] [place] [address], [place] * TSH WITH REFLEX (03/07/2025 3:25 PM CDT) TSH W/REFLEX TO FT4 1.22 0.40 - 4.50 mIU/L 03/08/2025 5:03 AM CDT [facility] Blood BLOOD SPECIMEN / Unknown [facility] / Unknown 03/07/2025 3:25 PM CDT 03/07/2025 3:25 PM CDT Dimitri Zimmer DO CHEMISTRY Final Res ult [facility] [address] [place] [address], [place] [phone] * (ABNORMAL) COMP METABOLIC PANEL (03/07/2025 3:25 PM CDT) Only the most recent of2 resultswithin the time period is included. SODIUM 142 135 - 146 mmol/L 03/08/2025 3:45 AM CDT [facility] POTASSIUM 5.0 3.5 - 5.3 mmol/L 03/08/2025 3:45 AM CDT [facility] CHLORIDE 106 98 - 110 mmol/L 03/08/2025 3:45 AM CDT [facility] CARBON DIOXIDE 27 20 - 32 mmol/L 03/08/2025 3:45 AM CDT [facility] GLUCOSE 102(H) 65 - 99 mg/dL 03/08/2025 3:45 AM CDT [facility] Comment: Fasting reference interval For someone without known diabetes, a glucose value between 100 and 125 mg/dL is consistent with prediabetes and should be confirmed with a follow-up test. CALCIUM 10.1 8.6 - 10.3 mg/dL 03/08/2025 3:45 AM CDT [facility] CREATININE 0.87 0.70 - 1.28 mg/dL 03/08/2025 3:45 AM CDT [facility] BUN/CREATININE RATIO SEE NOTE: (calc) 03/08/2025 3:45 AM CDT [facility] Comment: Not Reported: BUN and Creatinine are within reference range. EGFR 90 > OR = 60 mL/min/1. 73m2 03/08/2025 3:45 AM CDT [facility] ALBUMIN 4.5 3.6 - 5.1 g/dL 03/08/2025 3:45 AM CDT [facility] PROTEIN, TOTAL 7.2 6.1 - 8.1 g/dL 03/08/2025 3:45 AM CDT [facility] BILIRUBIN, TOTAL 0.5 0.2 - 1.2 mg/dL 03/08/2025 3:45 AM CDT [facility] ALKALINE PHOSPHATASE 62 35 - 144 U/L 03/08/2025 3:45 AM CDT [facility] ALT 15 9 - 46 U/L 03/08/2025 3:45 AM CDT [facility] AST 24 10 - 35 U/L 03/08/2025 3:45 AM CDT [facility] UREA NITROGEN (BUN) 21 7 - 25 mg/dL 03/08/2025 3:45 AM CDT [facility] GLOBULIN 2.7 1.9 - 3.7 g/dL (calc) 03/08/2025 3:45 AM CDT [facility] ALBUMIN/GLOBULI N RATIO 1.7 1.0 - 2.5 (calc) 03/08/2025 3:45 AM CDT [facility] Blood BLOOD SPECIMEN / Unknown [facility] / Unknown 03/07/2025 3:25 PM CDT 03/07/2025 3:25 PM CDT Dimitri Zimmer DO CHEMISTRY Final Res ult [facility] [address] [address], [place] [phone] * MA ECG ROUTINE ECG W/LEAST 12 LDS W/I&R (03/07/2025) us Dimitri Zimmer DO PB - CARDIOVASCULAR SYSTE M SERVICES Final Result * EKG 12 LEAD (03/07/2025) us Dimitri Zimmer DO EKG ORD Final Res ult * HEMOGLOBIN (12/20/2024 12:04 PM CDT) HEMOGLOBIN 15.5 13.2 - 17.1 g/dL [facility] (U Blood BLOOD SPECIMEN / Unknown 12/20/2024 12:04 PM CDT 12/20/2024 12:05 PM CDT Narrative [facility] - 12/20/2024 12:21 PM CDT SPLIT 12/20/2024 FROM [id number] us Dimitri Zimmer DO HEMATOLOGY Final Res ult [facility] [address] [place] [address], [place] [facility] (U [address] [facility] [address] * (ABNORMAL) LIPID PANEL W REFLEX MEASURED LDL (12/20/2024 12:03 PM CDT) CHOLESTEROL, TOTAL 144 <200 mg/dL [facility] HDL CHOLESTEROL 39(L) > OR = 40 mg/dL [facility] TRIGLYCERIDES 118 <150 mg/dL [facility] LDL-CHOLESTEROL 84 mg/dL (calc) [facility] Comment: Reference range: <100 Desirable range <100 mg/dL for primary prevention; <70 mg/dL for patients with CHD or diabetic patients with > or = 2 CHD risk factors. LDL-C is now calculated using the Gabriela calculation, which is a validated novel method providing better accuracy than the Friedewald equation in the estimation of LDL-C. Mohamud ROSAS et al. GWENDOLYN. 2013;310(19): 8850-0185 (http://education.[employer]/faq/TFY231) CHOL/HDLC RATIO 3.7 <5.0 (calc) [facility] NON HDL CHOLESTEROL 105 <130 mg/dL (calc) [facility] Comment: For patients with diabetes plus 1 major ASCVD risk factor, treating to a non-HDL-C goal of <100 mg/dL (LDL-C of <70 mg/dL) is considered a therapeutic option. Blood BLOOD SPECIMEN / Unknown 12/20/2024 12:03 PM CDT 12/20/2024 12:04 PM CDT Narrative [facility] - 12/21/2024 4:05 AM CDT MULTIPLE TESTING PRIORITIES; ROUTINE TESTING TO FOLLOW. us Dimitri Zimmer DO CHEMISTRY Final Res ult [facility] [address] [place] [address], [facility] [address] [place] [address] * PSA TOTAL (12/20/2024 12:03 PM CDT) PSA, TOTAL 0.91 < OR = 4.00 ng/mL [facility] gail Briggs Comment: The total PSA value from this assay system is standardized against the WHO standard. The test result will be approximately 20% lower when compared to the equimolar-standardized total PSA (Nabila Jay). Comparison of serial PSA results should be interpreted with this fact in mind. This test was performed using the Siemens chemiluminescent method. Values obtained from different assay methods cannot be used interchangeably. PSA levels, regardless of value, should not be interpreted as absolute evidence of the presence or absence of disease. Blood BLOOD SPECIMEN / Unknown 12/20/2024 12:03 PM CDT 12/20/2024 12:04 PM CDT Narrative [facility] - 12/21/2024 4:19 AM CDT MULTIPLE TESTING PRIORITIES; ROUTINE TESTING TO FOLLOW. Dimitri Zimmer DO CHEMISTRY Final Res ult Performing Organization Address [facility]/ZIP Co de Phone Number [facility] [address] [place] [address], [facility] [address] [place] [phone] * LC HCV ANTIBODY RFX TO QUANT PCR (12/17/2022 11:56 AM CDT) [facility] HCV Ab Non Reactive Non Reactive 12/21/2022 3:10 PM CDT [facility] Blood BLOOD SPECIMEN / Unknown Venipuncture / Unknown 12/17/2022 11:56 AM CDT 12/17/2022 11:56 AM CDT Narrative [facility] - 12/21/2022 3:10 PM CDT Performed at: [address] [place] [id number] Dispatcher Bus And Trolley: Taye Pitt MD, Phone: [phone] Dimitri Zimmer DO LABORATORY Final Res ult Performing Organization Address City/[facility]/ZIP Co de Phone Number [facility] [address] [place] [address], * SCAN-COLONOSCOPY (08/07/2015 12:00 AM STRATEGIC PARTNERSHIP MANAGER) us Scanner OTHER Final Result from Last 3 Months or Most Recently Relevant to Health Maintenance Additional Health Concerns Active Problems Noted Date Diagnosed Date Autogenerated Problem 2025 Insurance [employer] [place] [employer] MR PB ONLY MEDICARE PART A HB ONLY [employer] [place] BL[place] HB ONLY MEDICARE PART B HB ONLY Care Teams Cloth Bale Header Relationship Specialty [place] [address] [place] [address] PCP - General Family Practice 10/13/20
[2025-03-12 23:51] VITALS: BP 138/98; PULSE 142; RESP 16; TEMP 36.5; O2SAT 99; BMI 24.7
[2025-03-13] VITALS (25 sets, daily range): BP systolic 83–143; BP diastolic 50–99; PULSE 107–143; RESP 5–20; O2SAT 95–100
--- NOTE | 2025-03-13 00:08 | CRLHL7_ITS ---
For Patients: As a result of the Century Cures Act, medical imaging exams and procedure reports are released immediately into your electronic medical record. You may view this report before your referring provider. If you have questions, please contact your health care provider. INDICATION: New atrial flutter TECHNIQUE: Chest radiograph 2 views COMPARISON: 07/01/2024 FINDINGS: Mediastinum: The mediastinum is normal in appearance. The heart silhouette is normal in size and morphology. Lung: Both lungs are unremarkable in appearance. No sign of pleural effusion seen. No pneumothorax is identified. Bone and Soft tissue: Unremarkable for age. IMPRESSION: 1. No acute cardiopulmonary disease is seen. Dictated by: Quinton Acuna MD @ 03/13/2025 00:41:43 (Electronically Signed)
--- NOTE | 2025-03-13 00:25 | ED_ITS ---
HPI - General Adult General Chief complaint: Arrhythmia/Palpitations Stated complaint: heartrate 144 Time Seen by Provider: 03/13/25 00:05 Source: patient and family Mode of arrival: ambulatory Limitations: no limitations History of Present Illness HPI narrative: 75-year-old male with no prior significant cardiac history presents to the emergency department with feeling of rapid heart rate. He did not realize that he had a rapid heart rate until he was at a preoperative exam 5 days ago and was told that he had a fast heart rate. It sounds like he was started on 25 mg of atenolol and has been referred to a [facility] [employer] which she actually has an appointment for later today. He reports that since that appointment, he has been checking his heart rate more regularly. They are times that it comes down in rate and was as low as 100 and to after heavy exertion. He is not having chest pain, not having any shortness of breath, syncope or other typical symptoms. He reports that he has had intermittent heartburn for the last couple of days that has been a little more persistent today. He adamantly denies that this is not chest pain but he is not experiencing any nausea or other GI complaints. He has not tried taking an antacid or other similar medication for this. He did call a triage line and let them know that his heart rate with consistently running more like 120-140 at home any had this heartburn and they advised he come to an emergency room. He was not started on blood thinners at his appointment. It does not sound as though he has had an echo or other typical workup. He has been taking the atenolol and is disappointed that his heart has not come down to normal rate. Did not try any other interventions at home. Denies prior history of arrhythmia, heart failure, pulmonary embolism, coronary artery disease or other heart disease. He reports his only home medication is simvastatin and the newly started atenolol. No known drug allergies. Nonsmoker. 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 ROS is notable for the rapid heart rate and ?heartburn? as described above, otherwise denies times 12 systems. Related Data Home Medications ?Medication ?Instructions ?Recorded ?Confirmed pantoprazole 40 mg tablet,delayed 40 mg PO DAILY 04/2104/21/22 release simvastatin 40 mg tablet 40 mg PO DAILY 04/21/2206/17 Previous Rx's ?Medication ?Instructions ?Recorded hydroxyzine pamoate 25 mg capsule 25 mg PO TID PRN #20 caps 04/22/22 Allergies Allergy/AdvReac Type Severity Reaction Status Date / Time No Known Drug Allergies Allergy Verified 07/01/24 23:26 [facility] Social History Smoking Status: Never smoker Do you use any of these nicotine containing products: None Second hand tobacco smoke exposure: No How often do you have a drink containing alcohol: never How often do you have six or more drinks on one occasion: Never AUDIT-C Alcohol total score: 0 Non-prescribed substance use: denies use service: No Exam Const: Vital Signs, click to edit/add: Vital Signs - 24 hr 03/12/25 23:51 03/13/25 00:18 03/13/25 00:19 Temperature 97.7 F Pulse Rate 142 H 140 H Pulse Rate [Left P ulse Oximeter] 142 H Respiratory Rate 16 14 10 L Blood Pressure 143/99 H Blood Pressure [Ri ght Upper Arm] 138/98 H Pulse Oximetry 99 100 99 Oxygen Delivery Me thod Room Air 03/13/25 00:35 03/13/25 00:45 03/13/25 00:46 Temperature Pulse Rate 141 H 143 H 143 H Pulse Rate [Left P ulse Oximeter] Respiratory Rate 10 L 13 9 L Blood Pressure 129/90 H Blood Pressure [Ri ght Upper Arm] Pulse Oximetry 97 97 98 Oxygen Delivery Me thod 03/13/25 01:00 03/13/25 01:01 03/13/25 01:01 Temperature Pulse Rate 132 H 140 H 140 H Pulse Rate [Left P ulse Oximeter] Respiratory Rate 12 13 13 Blood Pressure 120/88 120/88 Blood Pressure [Ri ght Upper Arm] Pulse Oximetry 96 96 96 Oxygen Delivery Me thod 03/13/25 01:01 03/13/25 01:06 03/13/25 01:15 Temperature Pulse Rate 140 H 115 H 115 H Pulse Rate [Left P ulse Oximeter] Respiratory Rate 13 13 11 L Blood Pressure 120/88 122/78 Blood Pressure [Ri ght Upper Arm] Pulse Oximetry 96 96 95 Oxygen Delivery Me thod 03/13/25 01:16 03/13/25 01:30 03/13/25 01:31 Temperature Pulse Rate 119 H 107 H 110 H Pulse Rate [Left P ulse Oximeter] Respiratory Rate 13 12 7 L Blood Pressure 106/78 98/76 Blood Pressure [Ri ght Upper Arm] Pulse Oximetry 95 98 97 Oxygen Delivery Me thod 03/13/25 01:32 03/13/25 01:45 03/13/25 01:47 Temperature Pulse Rate 115 H 114 H 113 H Pulse Rate [Left P ulse Oximeter] Respiratory Rate 16 5 L 6 L Blood Pressure 83/50 L Blood Pressure [Ri ght Upper Arm] Pulse Oximetry 97 96 96 Oxygen Delivery Me thod 03/13/25 01:56 03/13/25 02:00 03/13/25 02:01 Temperature Pulse Rate 118 H 115 H 110 H Pulse Rate [Left P ulse Oximeter] Respiratory Rate 7 L 20 13 Blood Pressure 113/84 123/81 Blood Pressure [Ri ght Upper Arm] Pulse Oximetry 97 95 95 Oxygen Delivery Me thod 03/13/25 02:02 03/13/25 02:15 03/13/25 02:16 Temperature Pulse Rate 116 H 117 H 122 H Pulse Rate [Left P ulse Oximeter] Respiratory Rate 17 15 13 Blood Pressure 115/82 Blood Pressure [Ri ght Upper Arm] Pulse Oximetry 95 95 95 Oxygen Delivery Me thod 03/13/25 02:30 03/13/25 02:31 03/13/25 02:45 Temperature Pulse Rate 115 H 125 H 119 H Pulse Rate [Left P ulse Oximeter] Respiratory Rate 19 8 L 8 L Blood Pressure 123/97 H Blood Pressure [Ri ght Upper Arm] Pulse Oximetry 98 96 97 Oxygen Delivery Me thod 03/13/25 02:46 Temperature Pulse Rate 133 H Pulse Rate [Left P ulse Oximeter] Respiratory Rate 7 L Blood Pressure 122/91 H Blood Pressure [Ri ght Upper Arm] Pulse Oximetry 97 Oxygen Delivery Me thod Documenting provider has reviewed patient's vital signs: yes Common normals: alert Other: Anxious but redirectable. Appears well nourished and well hydrated. HENMT: Common normals: normocephalic, moist oral mucous membranes and oropharynx normal Head and scalp: normocephalic Face and sinus: normal facial exam Mouth: oral and palatal mucosa normal Eye: Common normals: conjunctivae normal General eye: normal appearance of both eyes Conjunctiva: conjunctiva(e) normal Neck & C-Spine: Common normals: full ROM and no lymphadenopathy General: normal visual inspection Chest: Common normals: inspection of chest normal Resp: Common normals: normal respiratory effort, no use of accessory muscles and clear to auscultation bilaterally Effort & inspection: able to speak in complete sentences Auscultation: clear to auscultation bilaterally Cardio: Other: Rapid rate but sounds regular. No murmurs. S1 and S2 are present. GI: Common normals: Normal to inspection, nondistended, normoactive bowel sounds present, soft to palpation, non-tender, no hepatosplenomegaly and no masses Palpation: soft and no hepatosplenomegaly Back & Pelvis: Common normals: thoracic and lumbar spine normal to inspection Extremity: Common normals: normal to inspection, normal capillary refill and no pedal edema Neuro: Sensorium/orientation: alert Speech: speech normal Motor exam: strength 5/5 throughout Psych: Appearance: grossly normal Attitude: engaged Insight: insight good Judgement: judgment good Skin: Common normals: no rashes or lesions noted General skin exam: no rashes or lesions noted Course Course ED Course: 75-year-old male with diagnosis of rapid heart rate 5 days ago at preoperative exam, EKG in triage showing atrial flutter with a 2-1 conduction. Recent outpatient started very low-dose amlodipine does not appear to have been successful in helping patient convert. I would not expect that to treatment to have had much success with just general slowing of atrial flutter. I do suspect that he has been in this rhythm at least the last 5 days due to his reported history and therefore is not an ideal candidate for cardioversion. I am uncertain if the ?heartburn? that he is reporting in the epigastric area is related to a cardiac process or simply the anxiety which he is suspecting related to the condition. I would recommend that we obtain troponins, chest x- ray, basic metabolic panel, typical basic blood work. Placed on alarm security or surveillance monitor. I would like to do a trial of 10 mg of diltiazem IV x1 to see if this has any effect in conduction. His blood pressures are certainly tolerating a heart rate of 144 and the atenolol. We could consider a dose increase of his medication. Consideration should also be given for blood thinners. Will discuss these further with patient once we had the studies described available. Not exhibiting any immediate signs of heart failure or cardiac compromise. Reevaluation(s) Reevaluation #1: Update: Diltiazem did lower the heart rate to the high a 100/1 teens. Blood pressure did drop to about 100 systolic with this. He continued to stay in atrial flutter though he did have more of an aberrant conduction rather than specific 2-1 ratio. Lab work does not show any signs of heart failure, acute coronary syndrome or other abnormality. Patient is now asymptomatic in the emergency room. We spent lot of time discussing the next steps and workup. I suspect that he has been in atrial flutter for quite some time, even longer than his diagnosis 5 days ago. He asks about his orthopedic appointment tomorrow, I let him know that he should reschedule this for a couple of months from now as workup for his atrial flutter will take priority and his surgery will need to be postponed. He was planning to have a total knee replacement. We discussed starting a blood thinner as the patient may need a cardioversion. He is wanting to wait until his cardiology appointment later today which is of course very reasonable. We also discuss other medications like anti arrhythmic say and stronger doses of rate controlling medications. Patient elects to wait until his cardiology appointment later today which is of course also reasonable. I would like for him to take another dose of his atenolol at breakfast this morning. If in the meantime he has severe shortness of breath, severe chest pain, persistent dizziness or other alarming symptoms, please return to the emergency room in the meantime. He verbalizes understanding and agreement and has no further questions. Vital Signs Vital signs: Initial Vital Signs Temperature 97.7 F 03/12/25 23:51 Temperature Source Temporal Artery Scan 03/12/25 23:51 Pulse Rate 142 H 03/12/25 23:51 Pulse Rhythm Regular 03/12/25 23:51 Respiratory Rate 16 03/12/25 23:51 Blood Pressure 138/98 H 03/12/25 23:51 Blood Pressure Mean 111 H 03/12/25 23:51 Blood Pressure Position Sitting 03/12/25 23:51 Pulse Oximetry 99 03/12/25 23:51 Oxygen Delivery Method Room Air 03/12/25 23:51 Vital Signs Temperature 97.7 F 03/12/25 23:51 Pulse Rate 142 H 03/12/25 23:51 Respiratory Rate 16 03/12/25 23:51 Blood Pressure 138/98 H 03/12/25 23:51 Pulse Oximetry 99 03/12/25 23:51 Oxygen Delivery Method Room Air 03/12/25 23:51 Temperature 97.7 F 03/12/25 23:51 Pulse Rate 133 H 03/13/25 02:46 Respiratory Rate 7 L 03/13/25 02:46 Blood Pressure 122/91 H 03/13/25 02:46 Pulse Oximetry 97 03/13/25 02:46 Oxygen Delivery Method Room Air 03/12/25 23:51 Medications Administered Medications: Discontinued Medications Generic Name Dose Route Start Last Admin Trade Name Freq PRN Reason Stop Dose Admin Diltiazem HCl 10 mg 03/13/25 00:29 03/13/25 01:01 Diltiazem 5 Mg/Ml Inj IVP 03/13/25 00:30 10 mg ONCE ONE Administration Medical Decision Making Lab Data Lab results reviewed: Yes I reviewed the patient's lab results Lab results narrative: Labs are reassuring. Troponin is negative, CRP is negative. BNP is not suggestive of significant heart failure. Labs: Lab Results 03/13/25 03/13/25 Range/Units 00:08 00:45 WBC 7.56 (4.50-11.00) K/uL RBC 4.38 (4.30-5.90) m/uL Hgb 14.2 (13.5-17.5) gm/dL Hct 43.1 (37.0-53.0) % MCV 98 (80-100) fL MCH 32 (26-34) pg MCHC 33 (32-36) gm/dL RDW Coeff of Marilia 12.2 (11.5-15.5) % Plt Count 173 (140-440) K/uL Neut % (Auto) 72.6 H (42.0-72.0) % Lymph % (Auto) 16.8 L (20-44) % Pender % (Auto) 9.3 (0.0-11.0) % Eos % (Auto) 1.2 (0.0-7.0) % Baso % (Auto) 0.1 (0.0-3.0) % Neut # (Auto) 5.50 (1.7-7.0) K/uL Lymph # (Auto) 1.30 (0.90-2.90) K/uL Pender # (Auto) 0.70 (0.00-0.90) K/UL Eos # (Auto) 0.09 (0.00-0.50) K/uL Baso # (Auto) 0.01 (0.00-0.30) K/uL Abs Immat Gran (auto) 0.00 (0.00-0.30) K/uL Imm/Tot Granulo (auto) 0.0 % Sodium 138 (135-149) mmol/L Potassium 4.4 (3.6-5.1) mmol/L Chloride 104 (96-114) mmol/L Carbon Dioxide 26 (20-32) mmol/L Anion Gap 8 (7-15) mEq/L BUN 21 (7-30) mg/dL Creatinine 0.8 (0.5-1.5) mg/dL Estimated Creat Clear 59.67 Estimated GFR 92 ml/min Glucose 108 (60-115) mg/dL Calcium 9.5 (8.4-10.6) mg/dL Total Bilirubin 0.5 (0.1-1.5) mg/dL AST 38 H (12-35) U/L ALT 25 (4-50) U/L Alkaline Phosphatase 57 (40-150) U/L Troponin I < 0.01 (0.01-0.04) ng/mL C-Reactive Protein < 0.5 L (0.5-1.0) mg/dL NT-Pro-B Natriuret Pep 1590 H (See Note) pg/mL Total Protein 7.3 (6.0-8.3) g/dL Albumin 4.4 (3.3-5.0) g/dL POC Troponin I 0.00 L (0.01-0.04) ng/ml Imaging Data Chest x-ray: Attestation: I have reviewed the pertinent imaging results. My impression: Normal chest x-ray. No evidence of heart failure, cardiac enlargement, infiltrates or pneumothorax Radiologist's impression: IMPRESSION: 1. No acute cardiopulmonary disease is seen. Dictated by: Quinton Acuna MD @ 03/13/2025 00:41:43 ECG Data Attestation: I personally reviewed and interpreted this ECG as follows: Prior ECG tracings: not available for review Interpretation: Atrial flutter with a rate of 144 initially. There is an interventricular block which makes determination of ischemia difficult. T-waves are inverted in the inferior leads, nondiagnostic. Borderline EKG. No prior comparison in our system. Discharge Plan Discharge Clinical Impression: Atrial flutter Patient Disposition: Home w/ Parent or Adult Condition: Stable Instructions: Atrial Flutter (DC) Additional Instructions: As we discussed, you are in an abnormal heart rhythm known as atrial flutter. This is a very common condition and I suspect that you have probably been going in and out of the rhythm for quite some time. We also certainly know that you have had the condition since last , the date of your preoperative exam. I am not surprised that the starting dose of the atenolol has not yet been enough to control your heart rate. We tend to start with a low dose to see how you tolerated and adjust the medicine and the dose when needed based on clinical response. It sounds as though your provider did not elect to start a blood thinner. We typically would start a blood thinner. We did discuss this in the ER but since you are seeing the [employer] literally today, I will agree with your decision to defer to their recommendation. Chances are, they will start you on a blood thinner. They will also likely discuss different medications and or scheduling you for something called a cardioversion. As we discussed, I am not rec ommending a cardioversion today because you have not been on blood thinners and there is clear evidence that you have been in this rhythm for quite some time. A cardioversion without proper preparation could increase your risk of a stroke. Your EKG, chest x-ray and blood work did not show any signs of heart attack, heart failure or other danger. We did a dose of diltiazem to see if it would slow your heart rate down and if your heart would spontaneously convert back to sinus rhythm. While the medication did lower your blood pressure and so your heart rate down, we did not have success in converting you back to sinus rhythm. I would like for you to take another dose of your atenolol later in the morning once you wake up. I will not be switching around your heart medications since you are seeing the [employer] later today. Please keep this appointment. Call your orthopedic surgeon and reschedule your appointment. Most likely, the [employer] will recommend that you wait a couple of months for the procedure. If you have severe chest pain, severe shortness of breath or persistent heart rate over 160 in the meantime, please return to the emergency room. Please bring this paperwork with you to the cardiology appointment, as they will not likely have access to my records. Activity Level: Activity as Tolerated Discharge Diet: Regular Prescriptions: No Action simvastatin 40 mg tablet 40 mg PO DAILY pantoprazole 40 mg tablet,delayed release (DR/EC) 40 mg PO DAILY hydroxyzine pamoate 25 mg capsule 25 mg PO TID PRNQty: 20 0RF Follow Up/Referrals: Dimitri Zimmer MD [Primary Care Provider, Orthopedics] Stand Alone Forms: bepretty Info Instructions
--- OUTSIDE RECORDS SUMMARY | 2025-03-13 00:43 | XMS_ITS | Clinical Summary ---
Author Organization [facility] Address [address] [place] [address] Care Team Providers Care Local Operator Name Role Phone Dimitri Zimmer DO Primary Care Provider [phone] Allergies No known active allergies Medications simvastatin [...] Department Care Team Description 03/12/2025 Nurse Triage [facility] [place] [id number] [place] [phone] Dimitri Zimmer DO Fast Heartbeat; Chest Pain 03/12/2025 Orders Only [address] [address] Dimitri Zimmer DO 1 scan: (1-Ord) <No description> 03/08/[address] [address] Dimitri Zimmer DO Appointment 03/07/2025 1:45 PM CDT Office Visit [address] [address] Dimitri Zimmer, Pre-Op Exam (03/26/[address] [place] [address] Cole Huang for robotic assisted arthroplasty of left knee.) 03/07/2025 Telephone [facility] [place] [address] [place] [address] Dimitri Zimmer, DO Results 03/07/2025 Travel 03/06/2025 Telephone [facility] [address] [facility] [address] [place] [address] Svetlana Ca, behavioral health case manager Nurse Navigator (ONN pre sx touch in) 03/06/2025 Patient Outreach [facility] [address] [facility] [address] [place] [address] Svetlana Ca, behavioral health case manager Nurse Navigator (ONN assessment/education ) 02/13/2025 10:45 AM CDT Office Visit [facility] [address] [place] [address] Deyvi Godfrey, DPM Follow Up (Rt 5th toe/LV 10/18/24 ) 02/13/2025 Travel 2025 11:20 AM CDT Office Visit [facility] [place] [address] [place] [address] Cole Huang MD Knee Pain/problem (Left knee pain ) 2025 Orders Only [facility] [address] [facility] [address] [place] [address] Cole Huang MD <No scans attached> 2025 Travel 12/20/2024 11:10 AM CDT Office Visit [facility] [place] [address] [place] [address] Dimitri Zimmer, Medicare ANNUAL (subsequent) Visit (Fasting today.); Knee Pain/problem (Left knee pain, ongoing from last visit. Would like to discuss an injection for this.) 12/20/2024 Travel from Last 3 Months Immunizations Immunization Administration Dates Next Due COVID-19 VACCINE SPIKEVAX (M ODERNA 50MCG/0.5ML) 12YO+ PFS 05/05/2023 COVID-19 vaccine (YatangoBio NTech 30mcg/0.3mL) 12YO+ BIVALENT PF, MDV 05/05/2022 COVID-19 vaccine (YatangoBio NTech 30mcg/0.3mL) PF, MDV 07/30/2021,11/25/2020,11/04/2020 Pneumococcal Poly,23-Valent [...] PM CDT Legal Sex Male 7:15 AM [employer]PERVIS[employer] Gender Identity Male 03/08/2025 1:54 PM CDT [...] Description 03/13/2025 11:00 AM CDT Office Visit [facility] [place] [address] [place] [address] Cole Huang MD [address] [place] [address] 03/13/2025 3:00 PM CDT Office Visit [facility] [address] [facility] [address] [place] [address] Cole Mayen MD [address] [facility] [address] [place] [address] 03/26/2025 8:43 AM CDT Hospital Encounter [address] [address] Cole Huang MD [address] [place] [address] 03/26/2025 8:43 AM CDT - 03/26/2025 11:18 AM CDT Surgery [address] [address] Cole Huang MD [address] [place] [address] INPATIENT LEFT ROBOTIC ASSISTED ARTHROPLASTY KNEE CORI 04/10/2025 11:00 AM CDT Office Visit [facility] [place] [address] [place] [phone] Cole Huang MD [address] [place], [place] [phone] 05/08/2025 11:00 AM CDT Office Visit [facility] [place] [address] [place] [phone] Cole Huang MD [address] [place], [place] [phone] Scheduled Procedures Name Priority Associated Diagnoses Date/Ti [...] age 75 08/07/202508/07, 08/07/2015 (Completed outside of [facility]) Depression screening for age 12+ 12/20/2025 12/20/2024, [...] LEAD Routine 03/07/2025 Preop general physical exam MT ECG ROUTINE ECG W/LEAST 12 LDS W/I&R [...] screening test SCAN-COLONOSCOPY 08/07/2015 12:0 0 AM [employer] from Last 3 Months or Most Recently Relevant to Health Maintenance Results * CBC WITH AUTO DIFFERENTIAL (03/07/2025 3:25 PM CDT) WHITE BLOOD CELL COUNT 8.2 3.8 - 10.8 Thousand/u L 03/07/2025 4:08 PM CDT [facility] RED BLOOD CELL COUNT 4.94 4.20 - 5.80 Million/uL 03/07/2025 4:08 PM CDT [facility] HEMOGLOBIN 15.9 13.2 - 17.1 g/dL 03/07/2025 4:08 PM CDT [facility] HEMATOCRIT 48.6 38.5 - 50.0 % 03/07/2025 4:08 PM CDT [facility] MCV 98.4 80.0 - 100.0 fL 03/07/2025 4:08 PM CDT [facility] MCH 32.2 27.0 - 33.0 pg 03/07/2025 4:08 PM CDT [facility] MCHC 32.7 32.0 - 36.0 g/dL 03/07/2025 4:08 PM CDT [facility] Comment: For adults, a slight decrease in the calculated MCHC value (in the range of 30 to 32 g/dL) is most likely not clinically significant; however, it should be interpreted with caution in correlation with other red cell parameters and the patient's clinical condition. RDW 12.4 11.0 - 15.0 % 03/07/2025 4:08 PM CDT [facility] PLATELET COUNT 194 140 - 400 Thousand/u L 03/07/2025 4:08 PM CDT [facility] MPV 9.8 7.5 - 12.5 fL 03/07/2025 4:08 PM CDT [facility] NEUTROPHILS 74 % 03/07/2025 4:08 PM CDT [facility] LYMPHOCYTES 15.8 % 03/07/2025 4:08 PM CDT [facility] MONOCYTES 9.0 % 03/07/2025 4:08 PM CDT [facility] EOSINOPHILS 1.0 % 03/07/2025 4:08 PM CDT [facility] BASOPHILS 0.2 % 03/07/2025 4:08 PM CDT [facility] ABSOLUTE NEUTROPHILS 6068 1500 - 7800 cells/uL 03/07/2025 4:08 PM CDT [facility] ABSOLUTE LYMPHOCYTES 1296 850 - 3900 cells/uL 03/07/2025 4:08 PM CDT [facility] ABSOLUTE MONOCYTES 738 200 - 950 cells/uL 03/07/2025 4:08 PM CDT [facility] ABSOLUTE EOSINOPHILS 82 15 - 500 cells/uL 03/07/2025 4:08 PM CDT [facility] ABSOLUTE BASOPHILS 16 0 - 200 cells/uL 03/07/2025 4:08 PM CDT [facility] Blood BLOOD SPECIMEN / Unknown [facility] / Unknown 03/07/2025 3:25 PM CDT 03/07/2025 3:25 PM CDT us Dimitri Zimmer DO HEMATOLOGY Final Res ult [facility] [address] [address], [place] [phone] [facility] [address] [place] [address], [place] * TSH WITH REFLEX (03/07/2025 3:25 PM CDT) TSH W/REFLEX TO FT4 1.22 0.40 - 4.50 mIU/L 03/08/2025 5:03 AM CDT [facility] Blood BLOOD SPECIMEN / Unknown [facility] / Unknown 03/07/2025 3:25 PM CDT 03/07/2025 3:25 PM CDT Dimitri Zimmer DO CHEMISTRY Final Res ult [facility] [address] [place] [address], [place] [phone] * (ABNORMAL) COMP METABOLIC PANEL (03/07/2025 3:25 [...] DO CHEMISTRY Final Res ult [facility] [address] [address], [place] [phone] * MT ECG ROUTINE ECG W/LEAST 12 LDS W/I&R (03/07/2025) us Dimitri Zimmer DO PB - CARDIOVASCULAR SYSTE M SERVICES Final Result * EKG 12 LEAD (03/07/2025) us Dimitri Zimmer DO EKG ORD Final Res ult * HEMOGLOBIN (12/20/2024 12:04 PM CDT) HEMOGLOBIN 15.5 13.2 - 17.1 g/dL [facility] (U Blood BLOOD SPECIMEN / Unknown 12/20/2024 12:04 PM CDT 12/20/2024 12:05 PM CDT Narrative [facility] - 12/20/2024 12:21 PM CDT SPLIT 12/20/2024 FROM [id number] us Dimitri Zimmer DO HEMATOLOGY Final Res ult [facility] [address] [place] [address], [place] [facility] (U [address] [place] [address] * (ABNORMAL) LIPID PANEL W REFLEX MEASURED [...] LDL-C. Mohamud ROSAS et al. GWENDOLYN. 2013;310(19): 7512-5296 (http://education.[employer]/faq/DVM743) CHOL/HDLC RATIO 3.7 <5.0 (calc) [facility] NON HDL CHOLESTEROL 105 <130 mg/dL (calc) [facility] Comment: For patients with [...] DO CHEMISTRY Final Res ult [facility] [address] [place] [address], [facility] [address] [place] [address] * PSA TOTAL (12/20/2024 12:03 PM CDT) [...] CHEMISTRY Final Res ult Performing Organization Address [facility]/ZIP Co de Phone Number [facility] [address] [place] [address], [facility] [address] [place] [phone] * LC HCV ANTIBODY RFX TO QUANT PCR (12/17/2022 11:56 AM CDT) [facility] HCV Ab Non Reactive Non Reactive 12/21/2022 3:10 PM CDT [facility] ([facility] Blood BLOOD SPECIMEN / Unknown Venipuncture / Unknown 12/17/2022 11:56 AM CDT 12/17/2022 11:56 AM CDT Narrative [facility] ([facility]) - 12/21/2022 3:10 PM CDT Performed at: [address] [place] [id number] [employer] Reader: Taye Pitt MD, Phone: [phone] Dimitri Zimmer DO LABORATORY Final Res ult Performing Organization Address City/[facility]/ZIP Co de Phone Number [facility] ([facility]) [address] [place] [address], * SCAN-COLONOSCOPY (08/07/2015 12:00 AM SUPERVIS[employer]) us Scanner OTHER Final Result from Last 3 Months or Most Recently Relevant to Health Maintenance Additional Health Concerns Active Problems Noted Date Diagnosed Date Autogenerated Problem 2025 Insurance BLUE CROSS IONE BLUE MR PB ONLY MEDICARE PART A HB ONLY BLUE CROSS IONE BLUE HB ONLY MEDICARE PART B HB ONLY Care Teams Local Operator Relationship Specialty [place] [address] [place] [address] PCP - General Family Practice 10/13/20
[2025-03-13 00:54] LABS: Hematocrit 43.1 % (37.0-53.0); Hemoglobin* 14.2 gm/dL (13.5-17.5); Immature Granulocytes Abs Auto 0.00 K/uL (0.00-0.30); Immature Granulocytes Pct Auto 0.0 %; Mean Corpuscular HGB Conc 33 gm/dL (32-36); Mean Corpuscular Hemoglobin 32 pg (26-34); Mean Corpuscular Volume 98 fL (80-100); RDW Coefficient of Variation % 12.2 % (11.5-15.5); Red Blood Count 4.38 m/uL (4.30-5.90); White Blood Count* 7.56 K/uL (4.50-11.00)
[2025-03-13 01:01] LABS: Lymphocytes Absolute Auto 1.30 K/uL (0.90-2.90); Slide Review Reflex No
[2025-03-13] MEDS: dilTIAZem 5 MG/ML inj 10 MG IVP (01:01)
[2025-03-13 01:07] LABS: Albumin* 4.4 g/dL (3.3-5.0); Chloride* 104 mmol/L (96-114)
[2025-03-13 01:08] LABS: Potassium* 4.4 mmol/L (3.6-5.1); Sodium* 138 mmol/L (135-149)
[2025-03-13 01:10] LABS: Alanine Aminotransferase* 25 U/L (4-50); Aspartate Amino Transferase* 38 U/L (12-35); Blood Urea Nitrogen* 21 mg/dL (7-30); Creatinine* 0.8 mg/dL (0.5-1.5); Est. Creatinine Clearance* 59.67; Estimated Glomerular Filt Rate 92 ml/min
[2025-03-13 01:11] LABS: Alkaline Phosphatase* 57 U/L (40-150); Anion Gap 8 mEq/L (7-15); Bilirubin Total* 0.5 mg/dL (0.1-1.5); Calcium* 9.5 mg/dL (8.4-10.6); Carbon Dioxide* 26 mmol/L (20-32); Glucose* 108 mg/dL (60-115); Total Protein* 7.3 g/dL (6.0-8.3)
[2025-03-13 01:34] LABS: Troponin, Point-of-Care* 0.00 ng/ml (0.01-0.04)
[2025-03-13 01:44] LABS: NT Pro B Type NatriureticPept* 1590 pg/mL (See Note)
== END 2025-03-13 03:02 | disposition home or self-care (01) ==
PROVIDERS: Emergency Provider Family Medicine; PCP Orthopaedic Surgery
DX: I48.92 Unspecified atrial flutter (principal)
CPT/HCPCS: 36415; 71046; 80053; 83880; 84484; 85025; 86140; 93005; 99284

== ENCOUNTER 2025-04-12 04:39 | Emergency (ER) | payer MEDICARE, BC, SELFPAY ==
--- OUTSIDE RECORDS SUMMARY | 2022-05-25 04:56 | XMS_ITS | Continuity of Care Document ---
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 Role Phone Juan Ramon Oden MD Unavailable Unavailabl e Allergies, Adverse Reactions, Alerts Substance Reaction Status Criticality No Known Allergies Active No Inform ation Medications Medication Instructions Dosage Effective Dates (start - stop) Status Comments simvastatin 40 mg tablet take 1 tablet by oral route every day in the evening 40 MG - Active pantoprazole 40 mg tablet,delayed release take 1 tablet (40MG) by oral route every day 1/2 hour before breakfast - No Longer Active Procedures Procedure Date Ugi Endo; W/bx 1/mx Level Iv-surg Path Gross/micro Offic/outpt E&m New Mod-hi Advance Directives Directive Yes / No Effective Date File Name No Information Encounters Encounter Description Practice Location Reason(s) For Visit Diagnoses Date Provider Providers Copied on Encounter [facility], [address] [address], [place], [place], [id number], [place] tel:[phone] [facility] No Information 2 Donnie Delatorre. [address] [facility] [facility] [address], [place], [place], [id number] , [place]. tel:[phone] [facility], [address] [address], [place], [place], [address], [place] tel:[phone] Devaughn [facility] Gastroesophageal reflux disease with esophagitis without hemorrhageGastro- esophageal reflux disease without esophagitisGastro -esophageal reflux disease without esophagitis 2 Yordy Staples. [address] [facility], [place], [place], [id number] , [place]. tel:[phone] Referring Provider: Referral Self, USE FOR SELF REFERRALS. Offic/outpt E&m New Mod-hi [facility], [address] [address], [place], [place], [id number], [place] tel:[phone] [facility] GI Symptoms or Concerns (chief complaint) Gastroesophageal reflux disease, unspecified whether esophagitis presentIrritable bowel syndrome with diarrhea 2 Yordy Staples. [address], [address], [place], [place], [id number] , [place]. tel:[phone] Referring Provider: Dimitri MATOS, [address] [facility] [place], [address]. tel:[phone] [facility], [address] [address], [place], [place], [address], [place] tel:[phone] [facility] No Information 2 Donnie Delatorre. [address] [facility], [place], [place], [address] , [place]. tel:[phone] Family History Family Member Type Diagnosis Age At Onset No Information Immunizations Vaccine Date Status Comments Pneumovax 23 administered Note: [facility] bi-d irectional interface ; Source: Other Registry SARS-COV-2 (COVID-19) vaccin e, mRNA, spike protein, LNP, preservative free, 30 mcg/0.3mL dose administered Note: [facility] bi-direct ional interface ; Source: Other Registry SARS-COV-2 (COVID-19) vaccin e, mRNA, spike protein, LNP, preservative free, 30 mcg/0.3mL dose administered Note: [facility] bi-direct ional interface ; Source: Other Registry SARS-COV-2 (COVID-19) vaccin e, mRNA, spike protein, LNP, preservative free, 30 mcg/0.3mL dose administered Note: [facility] bi-direct ional interface ; Source: Other Registry Prevnar administered Note: [facility] bi-d irectional interface ; Source: Other Registry tetanus toxoid, reduced diphtheria toxoid, and acellular pertussis vaccine, adsorbed administered Note: [facility] b i-directional interface ; Source: Other Registry Payers Payer name Insurance type Covered libertarian ID Richard ward(s) Blue Cross [place] Blue BL [id number] Social History Type Description Quantity Date Captured Comments Sex Male Smoking Status No Information Chief Complaint And Reason For Visit No Information Reason For Referral Reason For Referral No Information Plan Of Treatment Date Type Action Status Referral Ordered: follow-up visit with Jhoan Scales MD 2 Months Appointment date/timeframe: 2 Months ordered Referral Ordered: EGD Appointment date/timeframe: 03/15/2022 ordered History Of Present Illness Encounter Date Complaint History Of Prese nt Illness GI Symptoms or Concerns I was as ked to see Ronan by Dr. Dimitri Zimmer for consultation of abdominal discomfort.Ronan states that he has a longstanding history of GI symptoms. He notes that generally he prepares and cooks his own food, and as long as he does this, his bowels are regular without diarrhea or constipation. He never sees blood in his stool. However, if he eats processed foods, or if he goes out to eat, he will frequently have abdominal pain shortly after eating. This will be followed by the urgent need to pass a loose or liquid bowel movement. He will have a total of 2 or 3 bowel movements, and then his symptoms will resolve. Again, these symptoms have been going on for years.For the past 3 to 6 months, he has also been having epigastric discomfort. This seems to occur after eating. Sometimes, it radiates to his chest. Frequently, he will feel like he needs to belch. He states that if he is able to belch, it will improve these symptoms, but often he is not able to. He denies any nighttime symptoms and he denies any dysphagia. His appetite is good and his weight is stable.He was tried on omeprazole for 14 days without improvement. He has also been on an H2 sheryl without improvement. Functional Status Date Functional Assessmen t No Information Instructions Date Instruction Additional Infor mation No Information Assessments Type Assessment Date No Information Patient Care Teams Name Effective Dates (start - stop) Status Members No Information
--- OUTSIDE RECORDS SUMMARY | 2022-05-25 04:56 | XMS_ITS | Continuity of Care Document ---
Author Organization [facility] Address [address] [address] [place] [address] Phone Care Team Providers Care Relocation Counselor Name Role Phone Juan Ramon Oden MD [...] Diagnoses Date Provider Providers Copied on Encounter [facility] [place], [address] [address], [place], [place], [id number], [place] tel:[phone] [facility] No Information 2 Donnie Delatorre. [address] [facility] [facility] [address], [place], [place], [id number] , [place]. tel:[phone] [facility], [address] [address], [place], [place], [address], [place] tel:[phone] Devaughn [facility] Gastroesophageal reflux disease with esophagitis without hemorrhageGastro- esophageal reflux disease without esophagitisGastro -esophageal reflux disease without esophagitis 2 Yordy Staples. [address] [facility] [facility], [place], [place], [address] , [place]. tel:[phone] Referring Provider: Referral Self, USE FOR SELF REFERRALS. Offic/outpt E&m New Mod-hi [facility], [address] [address], [place], [place], [address], [place] tel:[phone] [facility] GI Symptoms or Concerns (chief complaint) Gastroesophageal reflux disease, unspecified whether esophagitis presentIrritable bowel syndrome with diarrhea 2 Yordy Staples. [address] [facility], [address], [place], [place], [address] , [place]. tel:[phone] Referring Provider: Dimitri MATOS, [address] [facility] [place], [address]. tel:[phone] [facility] [place], [address] [address], [place], [place], [address], [place] tel:[phone] [facility] No Information 2 Donnie Delatorre. [address] [facility], [place], [place], [address] , [place]. tel:[phone] Family History Family Member Type Diagnosis Age [...] Registry Payers Payer name Insurance type Covered alliance party ID Richard ward(s) Blue Cross [place] Blue BL [id number] Social History Type Description Quantity Date Captured [...]
--- OUTSIDE RECORDS SUMMARY | 2025-04-12 04:41 | XMS_ITS | Clinical Summary ---
Author Organization [employer] [facility] Address [address] [place] [address] Care Team Providers Care Business Management Consultant Name Role Phone Dimitri Zimmer DO Primary Care Provider [phone] Allergies No known active allergies Medications simvastatin 20 mg tabletIndications: Other hyperlipidemia Take 1 Tablet (20 mg) by mouth at bedtime. 90 Tablet 4 12/21/19 25 Active apixaban (ELIQUIS) 5 mg tabletIndications: prevent thromboembolism in chronic atrial fibrillation Take 1 Tablet (5 mg) by mouth two times daily. 180 Tablet 3 03/14/20 25 Active metoprolol succinate (Toprol XL) 50 mg sustained-release tabletIndications: Atrial flutter, unspecified type (HC) Take 1 Tablet (50 mg) by mouth once daily. 90 Tablet 3 03/14/20 25 Active acetaminophen (TYLENOL) 325 mg tablet Take 325-650 mg by mouth every 4 hours if needed for Pain. Max acetaminophen dose: 4000mg in 24 hrs. Active atenoloL (TENORMIN) 25 mg tabletIndications: Atrial flutter with rapid ventricular response (HC) Take 1 Tablet (25 mg) by mouth once daily. 30 Tablet 03/07/20 25 025 Disconti nued(*Me d complete /Regimen complete /Level of care change) Active Problems No known active problems Encounters Date Type Department Care Team Description 04/01/2025 Telephone [facility] [address] [place] [address] Goran, Dimitri Roberto, DO Questions (covid vaccine OK) 03/26/2025 Hospital Encounter [facility] [address] [place] [address] Cole Huang MD 03/25/2025 Orders Only [facility] [address] [place] [phone] Julisa Galvez MD 1 scan: (1-Ord) <No description> 03/22/2025 11:35 AM CDT Office Visit [facility] [address] [place] [phone] Julisa Galvez MD Hospital F/U (Cardioversion for A Flutter ) 03/22/2025 Travel 03/15/2025 11:12 AM CDT - 03/15/2025 11:59 PM CDT Hospital Encounter [facility] Cardiac Services [address] [place] [address] Alethea Padilla NP Atrial flutter, unspecified type (HC) 03/15/2025 10:07 AM CDT Anesthesia Event [facility] [address] [place] [address] Tyler Alicea MD 03/15/2025 8:01 AM CDT - 03/15/2025 11:45 AM CDT Hospital Encounter [facility] [address] [place] [place] [address] Ha Spangler MD Steffens, Joseph Douglas, MD Atrial flutter, unspecified type (HC) Discharge Disposition: Home Self Care 03/15/2025 Telephone [facility] [address] [facility] [address] [place] [phone] Alethea Padilla NP Follow Up (A-fib clinic follow up with Alethea Padilla DNP ) 03/14/2025 11:30 AM CDT Office Visit [facility] [address] [facility] [address] [place] [phone] Ha Spangler MD Consult (New patient A-flutter/Concerns: atenolol lowered HR, tachycardia returned 2 days later/Denies: chest pain, shortness of breath, dizziness) 03/14/2025 Travel 03/13/2025 Telephone [facility] [address] [place] [phone] Dimitri Zimmer, Error-please disregard 03/12/2025 Nurse Triage [facility] [address] [place] [phone] Dimitri Zimmer, Fast Heartbeat; Chest Pain 03/12/2025 Orders Only [address] [phone] Dimitri Zimmer, 1 scan: (1-Ord) <No description> 03/08/[address] [phone] Dimitri Zimmer, Appointment 03/07/2025 1:45 PM CDT Office Visit [address] [phone] Dimitri Zimmer, Pre-Op Exam (03/26/[address] [place] [address] Cole Huang for robotic assisted arthroplasty of left knee.) 03/07/2025 Telephone [facility] [address] [place] [phone] Dimitri Zimmer, Results 03/07/2025 Travel 03/06/2025 Telephone [facility] [address] [place] [address] Svetlana Ca, fire control assistant Nurse Navigator (ONN pre sx touch in) 03/06/2025 Patient Outreach [facility] [address] [place] [address] Svetlana Ca, fire control assistant Nurse Navigator (ONN assessment/education ) 02/13/2025 10:45 AM CDT Office Visit [email or web address] [address] [place] [address] Deyvi Godfrey, DPM Follow Up (Rt 5th toe/LV 10/18/24 ) 02/13/2025 Travel 2025 11:20 AM CDT Office Visit [facility] [address] [place] [phone] Cole Huang MD Knee Pain/problem (Left knee pain ) 2025 Orders Only [facility] - [facility] [place] [address] [facility] [address] [place] [phone] Cole Huang MD <No scans attached> 2025 Travel from Last 3 Months Immunizations Immunization Administration Dates Next Due COVID-19 VACCINE SPIKEVAX (M ODERNA 50MCG/0.5ML) 12YO+ PFS 05/05/2023 COVID-19 vaccine (Pfizer-Bio NTech 30mcg/0.3mL) 12YO+ BIVALENT PF, MDV 05/05/2022 COVID-19 vaccine (Pfizer-Bio NTech 30mcg/0.3mL) PF, MDV 07/30/2021,11/25/2020,11/04/2020 Pneumococcal Poly,23-Valent (Pneumovax) 10/16/19 22 Pneumococcal conj 13-Valent (Prevnar 13) 019 Tdap [...] PM CDT 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 Gender Identity Male 03/08/2025 1:54 PM CDT Sexual Orientation Straight 03/08/2025 1: 54 PM CDT Obstetrics History Last Filed Vital Signs Vital Sign Reading Time Taken Comments Blood Pressure 130/72 03/22/2025 11:42 AM CDT Pulse 68 03/22/2025 11:42 AM CDT Temperature 37.1 C (98.7 F) 03/15/2025 8:00 AM CDT Respiratory Rate 16 03/15/2025 11:15 AM CDT Oxygen Saturation 99% 03/15/2025 11:15 AM CDT Inhaled Oxygen Concentration - - Weight 71.2 kg (157 lb) 03/22/2025 11:42 AM CDT Height 170.2 cm (5' 7) 03/15/2025 8:00 AM CDT Body Mass Index 24.59 03/15/2025 8:00 AM CDT Plan of Treatment Upcoming Encounters Date Type Department Care Team (Late st Contact Info) Description 04/24/2025 1:30 PM CDT Nurse/Clinic Staff Only [facility] [address] [place] [phone] 04/24/2025 2:00 PM CDT Office Visit [facility] [address] [place] [phone] 04/24/2025 2:20 PM CDT Office Visit [facility] [address] [place] [phone] Alethea Padilla, PNEUMATIC TOOL REPAIRER [address] [place] [address] Health Maintenance Due Date Last Done Comments Zoster (shingles) series for age 50+ (1 of 2) 01/31/2000 RSV vaccine for adults or (1 - 1-dose 75+ series) 2025 COVID-19 vaccine series ( - 2024- season) 2025 05/05/2023, 05/05/2022, 07/30/2021, Additional history exists Influenza Vaccine (#1) 2025 Colonoscopy through age 75 08/07/202508/07, 08/07/2015 (Completed outside of [facility]) Depression screening for age 12+ 12/20/2025 12/20/2024, [...] on patient's age to complete this topic Procedures Procedure Name Priority Date/Time Associated Diagnosis Comments EKG 12 LEAD Routine 03/22/2025 Atrial flutter, unspecified type (HC) SD ECG ROUTINE ECG W/LEAST 12 LDS W/I&R Routine 03/22/2025 Atrial flutter, unspecified type (HC) SCAN-CARDIAC STRIP 03/15/2025 10 :45 AM CDT EKG 12 LEAD Post Op 03/15/2025 10:35 AM CDT ECHO OLENA WO CONTRAST W COLOR W LTD DOPPLER W BUBBLE Routine 03/15/2025 10:08 AM CDT Atrial flutter, unspecified type (HC) SCAN-CARDIAC STRIP 03/15/2025 8: 50 AM CDT POTASSIUM STAT 03/15/2025 8:31 AM CDT EKG 12 LEAD UNIT PERFORMED Routine 03/15/2025 8:27 AM CDT EXTENDED HOLTER Routine 03/15/2025 Atrial flutter, unspecified type (HC) SCAN-CARDIAC STRIP 03/15/2025 12 :00 AM CDT EKG 12 LEAD Routine 03/14/2025 11:15 AM CDT Atrial flutter, unspecified type (HC) CBC WITH AUTO DIFFERENTIAL Routine 03/07/2025 [...] LEAD Routine 03/07/2025 Preop general physical exam SD ECG ROUTINE ECG W/LEAST 12 LDS W/I&R Routine 03/07/2025 Preop general physical exam LIPID PANEL W REFLEX MEASURED LDL Routine 12/20/2024 12:03 PM CDT Other hyperlipidemia LC HCV ANTIBODY RFX TO QUANT PCR Routine 12/17/2022 11:56 AM CDT Need for hepatitis C screening test SCAN-COLONOSCOPY 08/07/2015 12:0 0 AM 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 us Julisa Galvez MD PB - CARDIOVASCULAR SYSTEM SERVICES Final Result * EKG 12 LEAD (03/22/2025) Only the most recent of4 resultswithin the time period is included. 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 Normal left ventricular size and low normal left ventricular systolic function. Estimated left ventricular ejection fraction is 50-55%. 2. Mild right ventricular enlargement with mildly reduced right ventricular systolic function. 3. Left and right atrial enlargement. 4. No left atrial appendage thrombus. 5. Mild mitral and tricuspid regurgitation. 6. PFO present by bubble study. 7. No prior study available for comparison. Estimated EF: 50-55% Level of Sedation: Moderate Physician sedation service time (mins): 16 Procedure Indications, goals, risks, benefits, and alternatives pertaining to the procedure were discussed with the patient and informed consent was obtained See procedural record for anesthesia details. Prior to the performance of procedure, time out was called to accurately identify the patient and procedure. Successful esophageal intubation was performed with a Zaid 3-D transesophageal probe after obtaining adequate retropharyngeal anesthesia. Complications There were no apparent complications. Medications Prior to the procedure the patient was alert and oriented. Intravenous medications were administered by the nurse with continuous monitoring of vital signs under my direct supervision. Total moderate sedation face to face monitoring time is listed above. Prior to the procedure the patient was alert and oriented. Versed 2 mg and Fentanyl 100 mcg were administered by the nurse with continuous monitoring of vital signs under my direct supervision. Total moderate sedation face to face monitoring time: 16 minutes. FINDINGS Left Ventricle Normal left ventricular chamber size and low normal left ventricular systolic function. Right Ventricle Mild right ventricular enlargement with mildly decreased right ventricular systolic function. Left Atrium Left atrial enlargement. Left Atrial Normal left atrial appendage with normal emptying velocity and without thrombus. Appendage Right Atrium Right atrial enlargement. Atrial Septum Patent foramen ovale with [id number] shunt by agitated saline injection. Aortic Valve Trileaflet aortic valve. Mildly thickened aortic valve. No aortic valve regurgitation. Mitral Valve Normal mitral valve. Mild mitral valve regurgitation. Tricuspid Valve Normal tricuspid valve. Mild tricuspid valve regurgitation. Pulmonic Valve Normal pulmonary valve. Trivial pulmonary valve regurgitation. Ascending Aorta Aortic sinus of Valsalva is normal in size (3.3 cm, ZScore = - 1.4). Normal indexed ascending aorta dimension (3.1 cm, 1.7 cm/m ). Aortic Arch and Trivial immobile atherosclerosis of the descending thoracic aorta. Descending Aorta Pericardium No pericardial effusion. MEASUREMENTS (Male / Female) Normal Values 2D MEASUREMENTS AND LV FUNCTION Sinuses of Valsalva Diameter(d) 3.3 cm Ascending Aorta Diameter(s) 3.1 cm Ascending Aorta Index 1.72 cm/m Aortic Root ZScore: -1.38 Cole Mayen MD 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 Normal left ventricular size and low normal left ventricular systolicfunction. Estimated left ventricular ejection fraction is 50-55%. 2. Mild right ventricular enlargement with mildly reduced rightventricular systolic function. 3. Left and right atrial enlargement. 4. No left atrial appendage thrombus. 5. Mild mitral and tricuspid regurgitation. 6. PFO present by bubble study. 7. No prior study available for comparison. Estimated EF: 50-55% Level of Sedation: Moderate Physician sedation service time (mins): 16 Procedure Indications, goals, risks, benefits, and alternativespertaining to the procedure were discussed with the patient and informed consent was obtained See procedural record for anesthesiadetails. Prior to the performance of procedure, time out was called to accurately identify the patient andprocedure. Successful esophageal intubation was performed with a Zaid 3-D transesophageal probe afterobtaining adequate retropharyngeal anesthesia. Complications There were no apparent complications. Medications Prior to the procedure the patient was alert and oriented.Intravenous medications were administered by the nurse with continuous monitoring of vital signs under my directsupervision. Total moderate sedation face to face monitoring time is listed above. Prior to the procedure the patientwas alert and oriented. Versed 2 mg and Fentanyl 100 mcg were administered by the nurse with continuousmonitoring of vital signs under my direct supervision. Total moderate sedation face to face monitoring time: 16minutes. FINDINGS Left Ventricle Normal left ventricular chamber size and low normal leftventricular systolic function. Right Ventricle Mild right ventricular enlargement with mildly decreasedright ventricular systolic function. Left Atrium Left atrial enlargement. Left Atrial Normal left atrial appendage with normal emptying velocityand without thrombus. Appendage Right Atrium Right atrial enlargement. Atrial Septum Patent foramen ovale with jmzln-kq-uoxp shunt by agitatedsaline injection. Aortic Valve Trileaflet aortic valve. Mildly thickened aortic valve. Noaortic valve regurgitation. Mitral Valve Normal mitral valve. Mild mitral valve regurgitation. Tricuspid Valve Normal tricuspid valve. Mild tricuspid valveregurgitation. Pulmonic Valve Normal pulmonary valve. Trivial pulmonary valveregurgitation. Ascending Aorta Aortic sinus of Valsalva is normal in size (3.3 cm,ZScore = - 1.4). Normal indexed ascending aorta dimension (3.1 cm, 1.7 cm/m ). Aortic Arch and Trivial immobile atherosclerosis of the descendingthoracic aorta. Descending Aorta Pericardium No pericardial effusion. MEASUREMENTS (Male / Female) Normal Values 2D MEASUREMENTS AND LV FUNCTION Sinuses of Valsalva Diameter(d) 3.3 cm Ascending Aorta Diameter(s) 3.1 cm Ascending Aorta Index 1.72 cm/m Aortic Root ZScore: -1.38 Cole Mayen MD [facility] Accredited Site (Electronically Signed) Final Date: 15 March 2025 12:24 ICD-10 Codes: I48.92 us Ha Spangler MD ECHO ORD Final Result * SCAN-CARDIAC STRIP (03/15/2025 8:50 AM CDT) us Scanner OTHER Final Result * POTASSIUM (03/15/2025 8:31 AM CDT) POTASSIUM 4.6 3.5 - 5.1 mmol/L 03/15/2025 8:48 AM CDT [facility] Blood BLOOD SPECIMEN / Unknown Venipuncture / Unknown 03/15/2025 8:31 AM CDT 03/15/2025 8:34 AM CDT us Alethea Padilla NP CHEMISTRY Final Re sult Performing Organization Address [facility] Co de Phone Number [facility] SENDOUT INTERNAL [address]IP [phone] [place] [address] * EKG 12 LEAD UNIT PERFORMED (03/15/2025 8:27 AM CDT) Interpretation Atrial flutter with rapid ventricular response Incomplete right bundle branch block Abnormal ECG When compared with ECG of 14-Mar-2025 11:15, (Unconfirmed) The ventricular rate has increased BEYOND NOW Ventricular Rate 139 BPM BEYOND NOW Atrial Rate 139 BPM BEYOND NOW P-R Interval 166 ms BEYOND NOW QRS Duration 114 ms BEYOND NOW QT 260 ms BEYOND NOW QTc 395 ms BEYOND NOW P [place] 118 degrees BEYOND NOW R [place] 39 degrees BEYOND NOW T [place] 34 degrees BEYOND NOW 03/15/2025 8:27 AM CDT 03/15/2025 9:06 AM CDT us Alethea Padilla NP EKG ORD Final Re sult Performing Organization Address [facility] Co de Phone Number BEYOND NOW [place], [place] * EXTENDED HOLTER (03/15/2025) 03/15/2025 Narrative Linda Gaming MD - 04/04/2025 12:00 AM CDT Sinus rhythm, average HR of 67 bpm. Rare ventricular ectopy. Frequent atrial ectopy- 8.9% 19 runs of NSAT. The longest run was 30 beats with an average rate of 116 bpm, and the fastest run was 5 beats with a rate of 151 bpm. No definite AF or Flutter. No symptomatic transmissions made. Please see scan document for full report. Signed By Linad Gaming MD Procedure Note Linda Gaming MD - 04/04/2025 Sinus rhythm, average HR of 67 bpm. Rare ventricular ectopy. Frequent atrial ectopy- 8.9% 19 runs of NSAT. The longest run was 30 beats with an average rate of 116bpm, and the fastest run was 5 beats with a rate of 151 bpm. No definite AF or Flutter. No symptomatic transmissions made. Please see scan document for full report. Signed By Linda Gaming MD us Alethea Padilla NP CARDIAC SERVICES ORD Fin al Result * SCAN-CARDIAC STRIP (03/15/2025 12:00 AM CDT) Narrative 03/15/2025 12:00 AM CDT Ordered by an unspecified provider. us Other Clinical Staff OTHER Final Resul t * CBC WITH AUTO DIFFERENTIAL (03/07/2025 3:25 PM CDT) WHITE BLOOD CELL COUNT 8.2 3.8 - 10.8 Thousand/u L 03/07/2025 4:08 PM CDT [facility] RED BLOOD CELL COUNT 4.94 4.20 - 5.80 Million/uL 03/07/2025 4:08 PM CDT [facility] HEMOGLOBIN 15.9 13.2 - 17.1 g/dL 03/07/2025 4:08 PM CDT [facility] HEMATOCRIT 48.6 38.5 - 50.0 % 03/07/2025 4:08 PM CDT [facility] MCV 98.4 80.0 - 100.0 fL 03/07/2025 4:08 PM CDT [facility] MCH 32.2 27.0 - 33.0 pg 03/07/2025 4:08 PM CDT [facility] MCHC 32.7 32.0 - 36.0 g/dL 03/07/2025 4:08 PM CDT [facility] Comment: For adults, a slight decrease in the calculated MCHC value (in the range of 30 to 32 g/dL) is most likely not clinically significant; however, it should be interpreted with caution in correlation with other red cell parameters and the patient's clinical condition. RDW 12.4 11.0 - 15.0 % 03/07/2025 4:08 PM CDT [facility] PLATELET COUNT 194 140 - 400 Thousand/u L 03/07/2025 4:08 PM CDT [facility] MPV 9.8 7.5 - 12.5 fL 03/07/2025 4:08 PM CDT [facility] NEUTROPHILS 74 % 03/07/2025 4:08 PM CDT [facility] LYMPHOCYTES 15.8 % 03/07/2025 4:08 PM CDT [facility] MONOCYTES 9.0 % 03/07/2025 4:08 PM CDT [facility] EOSINOPHILS 1.0 % 03/07/2025 4:08 PM CDT [facility] BASOPHILS 0.2 % 03/07/2025 4:08 PM CDT [facility] ABSOLUTE NEUTROPHILS 6068 1500 - 7800 cells/uL 03/07/2025 4:08 PM CDT [facility] ABSOLUTE LYMPHOCYTES 1296 850 - 3900 cells/uL 03/07/2025 4:08 PM CDT [facility] ABSOLUTE MONOCYTES 738 200 - 950 cells/uL 03/07/2025 4:08 PM CDT [facility] ABSOLUTE EOSINOPHILS 82 15 - 500 cells/uL 03/07/2025 4:08 PM CDT [facility] ABSOLUTE BASOPHILS 16 0 - 200 cells/uL 03/07/2025 4:08 PM CDT [facility] Blood BLOOD SPECIMEN / Unknown [facility] / Unknown 03/07/2025 3:25 PM CDT 03/07/2025 3:25 PM CDT us Dimitri Zimmer DO HEMATOLOGY Final Res ult [facility] [address] [place] [address], [place] [phone] [facility] [address] [place] [address], [place] * TSH WITH REFLEX (03/07/2025 3:25 PM CDT) TSH W/REFLEX TO FT4 1.22 0.40 - 4.50 mIU/L 03/08/2025 5:03 AM CDT [facility] Blood BLOOD SPECIMEN / Unknown [facility] / Unknown 03/07/2025 3:25 PM CDT 03/07/2025 3:25 PM CDT Dimitri Zimmer DO CHEMISTRY Final Res ult [facility] [address] [place] [address], * (ABNORMAL) COMP METABOLIC PANEL (03/07/2025 3:25 PM CDT) SODIUM 142 135 - 146 mmol/L 03/08/2025 [...] CDT [facility] BUN/CREATININE RATIO SEE NOTE: - (calc) 03/08/2025 3:45 AM CDT [facility] [...] 3:25 PM CDT us Dimitri Zimmer DO CHEMISTRY Final Res ult [facility] [address] [place] [address], * (ABNORMAL) LIPID PANEL W REFLEX MEASURED [...] factors. LDL-C is now calculated using the Mohamud-Parkinson calculation, which is a validated novel method providing better accuracy than the Friedewald equation in the estimation of LDL-C. Mohamud SS et al. GWENDOLYN. 2013;310(19): 6761-9090 (http://education.PadProof/faq/WXT215) CHOL/HDLC RATIO 3.7 <5.0 (calc) [facility] NON HDL CHOLESTEROL 105 <130 mg/dL (calc) [facility] Comment: For patients with diabetes plus 1 major ASCVD risk factor, treating to a non-HDL-C goal of <100 mg/dL (LDL-C of <70 mg/dL) is considered a therapeutic option. Blood BLOOD SPECIMEN / Unknown 12/20/2024 12:03 PM CDT 12/20/2024 12:04 PM CDT Narrative [facility] - 12/21/2024 4:05 AM CDT MULTIPLE TESTING PRIORITIES; ROUTINE TESTING TO FOLLOW. us Dimitri Zimmer DO CHEMISTRY Final Res ult [facility] [address] [place] [address], [employer] [address] * LC HCV ANTIBODY RFX TO QUANT PCR (12/17/2022 11:56 AM CDT) [facility] HCV Ab Non Reactive Non Reactive 12/21/2022 3:10 PM CDT [facility] Blood BLOOD SPECIMEN / Unknown Venipuncture / Unknown 12/17/2022 11:56 AM CDT 12/17/2022 11:56 AM CDT [facility] - 12/21/2022 3:10 PM CDT Performed at: [address] [place] [id number] Paper Folder: Taye Pitt MD, Phone: [phone] us Dimitri Roberto Goran DO LABORATORY Final Res ult [facility] [address] [place] [address], * SCAN-COLONOSCOPY (08/07/2015 12:00 AM 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) us Scanner OTHER Final Result from Last 3 Months or Most Recently Relevant to Health Maintenance Insurance [employer] BL[employer] MR PB ONLY MEDICARE PART A HB ONLY [employer] BLUE HB ONLY MEDICARE PART B HB ONLY Advance Directives * Full Code (Latest Code Status on File) Date Activated Date Inactivated Comments 03/15/2025 9:19 AM 03/15/2025 2:11 PM Question Answer Comments Code Status Discussion: Reviewed Preferences Care Teams Business Management Consultant Relationship Specialty [place] [address] [place] [address] PCP - General Family Practice 10/13/20
[2025-04-12 04:48] VITALS: BP 181/93; PULSE 70; RESP 16; TEMP 36.6; O2SAT 98; BMI 25.1
--- NOTE | 2025-04-12 05:08 | ED.ANXIETY ---
HPI - Anxiety General Date Seen: 04/12/25 Chief Complaint: Anxiety Stated Complaint: couldn't sleep, elevated bp Time Seen by Provider: 04/12/25 04:41 Source: patient Mode of arrival: ambulatory Limitations: no limitations History of Present Illness HPI narrative: 75-year-old male with a history of hypertension who had difficulty sleeping this evening so he decided to check his blood pressure. We noted that it was elevated he decided to come to the emergency department. He has no chest pains, shortness of breath, palpitations. He acknowledges anxiety which keeps him awake at night. His PCP is Dr. Collado. He does not take anything regularly for anxiety or for sleep. For hypertension he takes Toprol-XL 50 mg daily. Related Data Home Medications ?Medication ?Instructions ?Recorded ?Confirmed pantoprazole 40 mg tablet,delayed 40 mg PO DAILY 04/21/22 04/21/22 release simvastatin 40 mg tablet 40 mg PO DAILY 04/21/22 07/01/24 apixaban 5 mg tablet (Eliquis) 5 mg PO BID 04/12/25 04/12/25 metoprolol succinate 50 mg 50 mg PO DAILY 04/12/25 04/12/25 tablet,extended release 24 hr Previous Rx's ?Medication ?Instructions ?Recorded hydroxyzine pamoate 25 mg capsule 25 mg PO TID PRN #20 caps 04/22/22 Allergies Allergy/AdvReac Type Severity Reaction Status Date / Time No Known Drug Allergies Allergy Verified 07/01/24 23:26 Review of Systems Narrative: Review of systems is outlined above otherwise noted to be negative. [facility] Social History Smoking Status: Never smoker Do you use any of these nicotine containing products: None Second hand tobacco smoke exposure: No How often do you have a drink containing alcohol: never How often do you have six or more drinks on one occasion: Never AUDIT-C Alcohol total score: 0 Non-prescribed substance use: denies use service: No Exam Narrative: Exam Narrative: Vitals noted. HEENT: Conjunctiva clear. Tympanic membranes are pearly white bilaterally. Posterior pharynx is clear without erythema or exudate. Neck is supple without adenopathy, thyromegaly, carotid bruit. Lungs: Clear to auscultation in all desai. No wheezes, rales, rhonchi. Heart: Regular rate and rhythm without murmur. Abdomen: Soft and nontender. No guarding, rigidity, rebound. Bowel sounds are normal. No palpable masses. Extremities: No cyanosis or edema. Good distal pulses. Skin: No abnormalities noted of the exposed skin. Neurologic: Awake, alert, fully oriented. Neurologic exam is nonfocal. Const: Vital Signs, click to edit/add: Vital Signs - 24 hr 04/12/25 04:48 Temperature 98 F Pulse Rate [Pulse Oximeter] 70 Respiratory Rate 16 Blood Pressure [Ri ght Upper Arm] 181/93 H Pulse Oximetry 98 Oxygen Delivery Me thod Room Air Course Course ED Course: Patient is seen and examined. His blood pressure is elevated but not dangerously so. He drove himself in. No indication for labs or further workup. Lorazepam is sent to the [employer] machine. Vital Signs Vital signs: Initial Vital Signs Temperature 98 F 04/12/25 04:48 Temperature Source Temporal Artery Scan 04/12/25 04:48 Pulse Rate 70 04/12/25 04:48 Respiratory Rate 16 04/12/25 04:48 Blood Pressure 181/93 H 04/12/25 04:48 Blood Pressure Mean 122 H 04/12/25 04:48 Blood Pressure Position Sitting 04/12/25 04:48 Pulse Oximetry 98 04/12/25 04:48 Oxygen Delivery Method Room Air 04/12/25 04:48 Vital Signs Temperature 98 F 04/12/25 04:48 Pulse Rate 70 04/12/25 04:48 Respiratory Rate 16 04/12/25 04:48 Blood Pressure 181/93 H 04/12/25 04:48 Pulse Oximetry 98 04/12/25 04:48 Oxygen Delivery Method Room Air 04/12/25 04:48 Temperature 98 F 04/12/25 04:48 Pulse Rate 70 04/12/25 04:48 Respiratory Rate 16 04/12/25 04:48 Blood Pressure 181/93 H 04/12/25 04:48 Pulse Oximetry 98 04/12/25 04:48 Oxygen Delivery Method Room Air 04/12/25 04:48 Discharge Plan Discharge Clinical Impression: Acute anxiety, Insomnia Patient Disposition: Home, Self-Care Condition: Stable Additional Instructions: Ativan 1 mg at bedtime as needed. Discuss your anxiety with Dr Zimmer. If your blood pressure remains high he can raise your Metoprolol dose. Call to get the results of your ZIO patch. Prescriptions: No Action metoprolol succinate 50 mg tablet extended release 24 hr 50 mg PO DAILY Eliquis 5 mg tablet 5 mg PO BID simvastatin 40 mg tablet 40 mg PO DAILY pantoprazole 40 mg tablet,delayed release (DR/EC) 40 mg PO DAILY hydroxyzine pamoate 25 mg capsule 25 mg PO TID PRNQty: 20 0RF Follow Up/Referrals: Dimitri Zimmer MD [Primary Care Provider, Orthopedics] Stand Alone Forms: [facility] Info Instructions
== END 2025-04-12 05:34 | disposition home or self-care (01) ==
LOC: ED 05:11
PROVIDERS: Emergency Provider Family Medicine; PCP Orthopaedic Surgery
DX: G47.00 Insomnia, unspecified (principal)
CPT/HCPCS: 99281; 99283